=== PATIENT | female | born 1955 | race Caucasian/White ===

== ENCOUNTER 2019-09-27 07:00 | Outpatient (CLI) | payer OTHER, SELFPAY ==
--- NOTE | 2019-10-14 11:38 | SLEEP_ITS ---
CPAP titration DATE OF STUDY: 09/27/2019 ORDERING PHYSICIAN: Brook Alicea MD. REASON FOR THE STUDY: Prior sleep study, HST, on 05/09/2019 showing obstructive sleep apnea syndrome, requiring CPAP titration. HISTORY: This patient is a 64-year-old female, 64 inches tall, weighing 161 pounds with a body mass index of 27.6. On a home sleep test on 05/09/2019, she had mild EL with an AHI of 5. She has medical comorbidities and presents now for a CPAP titration. 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 MEDICATIONS: 1. Coumadin. 2. Lasix. 3. Potassium. 4. Levothyroxine. 5. Ambien 5 mg every night. 6. Aspirin 81 mg a day. 7. Multivitamin 1 daily. 8. ProAir RespiClick p.r.n. shortness of breath. 9. Metoprolol. 10. Sotalol. 11. Vitamin B12. 12. Glucosamine. 13. Spiriva. 14. Allopurinol. 15. Boniva. 16. Alvesco. HABITS: Never smoked tobacco. Caffeine 12 to 24 ounces a day. No alcohol. DESCRIPTION OF THE STUDY: On the [place] Sleepiness Scale, her score was 15. This was conducted as an attended full-night CPAP titration using the [employer] multiple channel system, including EOG, EEG, submental EMG, EKG, nasal and oral airflow using the thermistors and nasal pressure sensors chest and abdominal belts, body position data and pulse oximetry. This study was scored using the CMS guidelines. Duration of the study was 503.8 minutes. Sleep time was 256.5 minutes. Sleep efficiency was 50.9%. The sleep latency was 0.9 minutes, consistent with extreme hypersomnolence. There is no mention if she used a sleep inducing medication; however, she does have Ambien listed as a sleep medication. She wore a Sanchez LT nasal pillow, but she does not plan to use this when at home. It was the only nasal pillow mask in stock with the extra-small nasal pillows that fit her nose. She is not interested in a nasal mask that goes around her nose. The REM latency was 49.5 minutes. She had 71 awakenings and spent 49% of the study awake after the sleep onset, 246.4 minutes. Sleep architecture showed 7.7% of stage I sleep, 38.6% of stage II sleep, no stage III sleep, and 4.8% of stage REM. She spent 51 minutes supine. Sleep was extremely fragmented with 3 REM cycles, the first one was short with a short sleep latency, which is consistent with extreme hypersomnolence. Sleep was fragmented with frequent shifts between wake stage I and stage II throughout the study. The apnea-hypopnea index was 2.6. The obstructive index was 2.1, central index 0.5. She had 3 obstructive hypopneas in the supine REM for an index of 7.5. She had 1 obstructive apnea, 2 central apneas, and 5 obstructive hypopneas in the supine non-REM for an index of 2.1. The supine index was 2.6. Lowest desaturation was 90%. She spent no time below 88%. She had 9 desaturations of 4% or greater for an index of 1.1. The mean saturation was 94.6%. Arousals: 137 arousals for an index of 16.3. She had 1 hypopnea for an index of 0.11, 135 spontaneous for an index of 16.1, and 1 limb movement for an index of 0.1. Limb movements: No limb movements. EKG: Paced rhythm. Mean heart rate 73. During this titration, the patient used the extra-small Sanchez LT nasal pillow with a chinstrap. She was initiated at a pressure of 5 cm with poor sleep efficiency. She had a sleep efficiency of 88% on a pressure of 8 with 1 of EPR, but did not have any REM at that setting. She had a very little REM throughout the study. It was difficult to pick an optimal pressure, as she had such poor sleep efficiency throughout the majority of the test. She had very f
== END 2019-09-27 07:01 | disposition home or self-care (01) ==
LOC: ANHCSM 07:01
PROVIDERS: PCP Family Medicine Adolescent Medicine; Visit Provider Internal Medicine Critical Care Medicine
DX: G47.33 Obstructive sleep apnea (adult) (pediatric) (principal)
CPT/HCPCS: 95811

== ENCOUNTER 2019-12-19 09:22 | Outpatient (CLI) | payer OTHER, SELFPAY ==
--- NOTE | 2019-12-19 11:15 | NEURO_ITS ---
Patient Number: [id number] Impression: # Complains of weakness of legs and lower back pain. # Normal nerve conduction study including motor, sensory and F-waves. # Normal needle/EMG exam. # Clinical correlation recommended; Higher involvement cannot be ruled out. Nerve Conduction Studies Anti Sensory Summary Table Stim Site NR Peak (ms) P-T Amp (?V) Site1 Site2 Delta-P (ms) Dist (cm) Osorio (m/s) Left Sup Fibular Anti Sensory (Ant Lat Mall) 14 cm 3.2 9.4 14 cm Ant Lat Mall 3.2 16.0 50 Right Sup Fibular Anti Sensory (Ant Lat Mall) 14 cm 3.4 28.5 14 cm Ant Lat Mall 3.4 16.0 47 Left Sural Anti Sensory (Lat Mall) Calf 3.8 20.4 Calf Lat Mall 3.8 16.0 42 Right Sural Anti Sensory (Lat Mall) Calf 3.8 13.9 Calf Lat Mall 3.8 16.0 42 Motor Summary Table Stim Site NR Onset (ms) O-P Amp (mV) Site1 Site2 Delta-0 (ms) Dist (cm) Osorio (m/s) Left Peroneal Motor (Vastus Med) Ankle 3.7 2.6 Popit Ankle 7.1 36.0 51 Popit 10.8 2.1 Right Peroneal Motor (Vastus Med) Ankle 4.0 1.0 Popit Ankle 7.1 37.0 52 Popit 11.1 0.9 Left Tibial Motor (Abd Rodriguez Brev) Ankle 4.3 2.3 Knee Ankle 8.0 40.0 50 Knee 12.3 1.6 Right Tibial Motor (Abd Rodriguez Brev) Ankle 4.1 3.7 Knee Ankle 9.1 40.0 44 Knee 13.2 1.2 F Wave Studies NR F-Lat (ms) L-R F-Lat (ms) Left Peroneal (Mrkrs) (EDB) 47.81 0.97 Right Peroneal (Mrkrs) (EDB) 48.79 0.97 Left Tibial (Mrkrs) (Abd Hallucis) 49.89 0.78 Right Tibial (Mrkrs) (Abd Hallucis) 49.11 0.78 EMG Side Muscle Nerve Root Ins Act Fibs Amp Dur Recrt Comment Right AntTibialis Dp Br Fibular L4-5 Nml Nml Nml Nml Nml Right Gastroc Tibial S1-2 Nml Nml Nml Nml Nml Right Fibularis Long Sup Br Fibular L5-S1 Nml Nml Nml Nml Nml Right Flex Dig Long Tibial L5-S2 Nml Nml Nml Nml Nml Right Ext Dig Brev Dp Br Fibular L5, S1 Nml Nml Nml Nml Nml Left AntTibialis Dp Br Fibular L4-5 Nml Nml Nml Nml Nml Left Gastroc Tibial S1-2 Nml Nml Nml Nml Nml Left Fibularis Long Sup Br Fibular L5-S1 Nml Nml Nml Nml Nml Left Flex Dig Long Tibial L5-S2 Nml Nml Nml Nml Nml Left Ext Dig Brev Dp Br Fibular L5, S1 Nml Nml Nml Nml Nml Right QuadratusFem QuadFemoris L4-5, S1 Nml Nml Nml Nml Nml Left QuadratusFem QuadFemoris L4-5, S1 Nml Nml Nml Nml Nml MTDD
== END 2019-12-19 09:23 | disposition home or self-care (01) ==
PROVIDERS: PCP Family Medicine Adolescent Medicine; Visit Provider Family Medicine Adolescent Medicine
DX: M79.89 Other specified soft tissue disorders (principal); M54.5 Low back pain
CPT/HCPCS: 95886; 95910

== ENCOUNTER 2020-02-14 08:42 | Outpatient (CLI) | payer OTHER, SELFPAY ==
--- NOTE | ~2020-02-14 | CT_ITS ---
EXAMINATION: CT cervical spine wo [facility] EXAM DATE: 02/14/2020 09:11 INDICATION: Cervical cancer. Left arm weakness. TECHNIQUE: Spiral CT of the cervical spine was performed without contrast. Axial images were reviewe d. Coronal and sagittal reformatted images were also reviewed. The dose-length product (DLP) for thi s examination was 213.26 mGy-cm. The exposure was tailored according to patient size (auto mA exposu re control), and iterative reconstruction (ASIR) was used as additional dose reduction technique. [facility] is no prior study for comparison. Correlation was made with cervical spine MRI 2011. FINDINGS: Mild mid cervical disc disease. The odontoid process is intact. The lateral masses of C1 l ine up with C2. There are no acute fractures identified. Prevertebral soft tissue and pre-dens space are within normal limits. There are no osteoblastic or osteolytic lesions identified. Paraspinal soft tissue is unremarkable. Level by level evaluation: C2-C3: Disc does not extend beyond the endplate margin. Uncovertebral joint arthropathy: None. Facet joint arthropathy: Mild. Neural foraminal stenosis: No stenosis. Central canal stenosis: No stenosis. C3-C4: Disc does not extend beyond the endplate margin. Uncovertebral joint arthropathy: None. Facet joint arthropathy: Mild. Neural foraminal stenosis: No stenosis. Central canal stenosis: No stenosis. C4-C5: Disc does not extend beyond the endplate margin. Uncovertebral joint arthropathy: Mild left. Facet joint arthropathy: Moderate right, mild left. Neural foraminal stenosis: No stenosis. Central canal stenosis: No stenosis. C5-C6: There is a mild diffuse disc bulge. Uncovertebral joint arthropathy: Mild left. Facet joint arthropathy: Mild to moderate bilateral. Neural foraminal stenosis: Mild left. Central canal stenosis: No stenosis. C6-C7: There is a mild diffuse disc bulge. Uncovertebral joint arthropathy: Mild bilateral. Facet joint arthropathy: Mild bilateral. Neural foraminal stenosis: No stenosis. Central canal stenosis: No stenosis. C7-T1: Disc does not extend beyond the endplate margin. Uncovertebral joint arthropathy: None. Facet joint arthropathy: None. Neural foraminal stenosis: No stenosis. Central canal stenosis: No stenosis. IMPRESSION: 1. Overall mild cervical spondylosis. Reviewed, dictated and finalized at location A.
== END 2020-02-14 08:43 | disposition home or self-care (01) ==
PROVIDERS: PCP Family Medicine Adolescent Medicine; Visit Provider Psychiatry & Neurology Neurology
DX: R53.1 Weakness (principal); M47.812 Spondylosis without myelopathy or radiculopathy, cervical region
CPT/HCPCS: 72125

== ENCOUNTER → 2020-07-30 11:14 | Outpatient (CLI) | payer OTHER, SELFPAY ==
--- NOTE | ~2020-07-30 | XR_ITS ---
XR foot LT min 3V 07/30/2020 11:32 INDICATION: Left foot pain after injury PROCEDURE: 4 views left foot COMPARISON: 05/04/2015 FINDINGS: There is a healing nondisplaced stress fracture of the fourth metatarsal.. Lisfranc joint i ntact. The soft tissues appear within normal limits. No foreign bodies are identified. IMPRESSION: 1: Healing nondisplaced stress fracture left fourth metatarsal. Reviewed, dictated and finalized at location A. AL DIRECTOR
== END ==
PROVIDERS: PCP Family Medicine Adolescent Medicine; Visit Provider Family Medicine Adolescent Medicine
DX: S99.922A Unspecified injury of left foot, initial encounter (principal); S99.922D Unspecified injury of left foot, subsequent encounter
CPT/HCPCS: 73630

== ENCOUNTER 2020-08-01 11:05 | Emergency (ER) | payer OTHER, SELFPAY ==
--- NOTE | ~2020-08-01 | XR_ITS ---
XR hip RT min 3V w AP pelvis 08/01/2020 11:30 INDICATION: Right hip pain after fall PROCEDURE: AP pelvis and 3 views right hip COMPARISON: No prior studies for comparison. FINDINGS: There is periosteal reaction of the lateral margin of the proximal femur with transverse avtar cency, compatible with stress fracture. Sacral foramen are symmetric. There is mild osteoarthritis of the hips. The soft tissues appear within normal limits. No foreign bodies are identified. IMPRESSION: 1: Stress fracture proximal diaphysis of the right femur seen on one view only. Reviewed, dictated and finalized at location A. 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
--- NOTE | ~2020-08-01 | XR_ITS ---
XR knee RT 3V 08/01/2020 11:30 Indication: Right knee pain Procedure: 3 views right knee Comparison: 01/20/2012 Findings: Small joint effusion. There is mild soft tissue prominence anterior to the proximal tibia, nonspecific. There is a possible age indeterminate osteochondral defect along the posterior margin th e patella, best seen on lateral view. Impression: 1: Possible age indeterminate osteochondral defect posterior margin of the patella, demonstrated on l ateral view. 2: Small knee effusion. Reviewed, dictated and finalized at location A. AP BAG SEWER Impression: 1: Possible age indeterminate osteochondral defect posterior margin of the kaye lla, demonstrated on lateral view. 2: Small knee effusion.
--- NOTE | ~2020-08-01 | CT_ITS ---
EXAMINATION: CT pelvis wo con DATE: 08/01/2020 12:34 INDICATION: Right mid femur pain TECHNIQUE: Computed tomography (CT) of the pelvis was performed without intravenous contrast. The dos e-length product was 526.92 mGy-cm. Automated exposure control and iterative reconstruction technique were employed. COMPARISON: 08/01/2020 FINDINGS: The transverse lucency seen in the lateral margin of the proximal right femoral diaphysis i s not well visualized on CT examination. There is mild degenerative changes of the hips. There is a r ight sacral insufficiency fracture which is nondisplaced. No other fractures identified. Visualized i ntra-abdominal contents are normal. IMPRESSION: 1. Nondisplaced right sacral insufficiency fracture. 2: Transverse nondisplaced fracture proximal aspect of the right femur seen on x-ray is not definitel y visualized on CT. Consider correlation with MRI. Reviewed, dictated and finalized at location A. ANALYST IMPRESSION: 1. Nondisplaced right sacral insufficiency fracture. 2: Transverse nondisplaced fracture proximal aspect of the right femur seen on x-ray is not definitely visualized on CT. Consider correlation with MRI.
--- NOTE | ~2020-08-01 | CT_ITS ---
EXAMINATION: CT brain wo con DATE: 08/01/2020 15:06 INDICATION: Head injury. Headache. TECHNIQUE: Computed tomography (CT) of the head was performed without intravenous contrast. The mA wa s adjusted according to patient size. Iterative reconstruction technique was employed. The dose-lengt h product was 605.33 mGy-cm. COMPARISON: Head CT 12/26/2014 FINDINGS: There is no intracranial hemorrhage, acute infarction, or abnormal intracranial mass lesion . There is a prominent perivascular space inferior to the left basal ganglia. There are scattered are as of low attenuation in the cerebral white matter, which is within normal limits for the patient's a ge. The ventricles are normal in size. The orbits are normal. The paranasal sinuses are clear. The m astoid air cells are normal. IMPRESSION: 1. Normal aging brain. Reviewed, dictated and finalized at location A. CUTTER IMPRESSION: 1. Normal aging brain.
[2020-08-01] MEDS: MORPHINE SULFATE (*CRX) 4 MG/ML INJ IV PUSH ×2 (11:36→13:41)
[2020-08-01 11:45] VITALS: BP 140/67; PULSE 81; RESP 15; TEMP 36.7; O2SAT 95
[2020-08-01 14:11] LABS: Basophils Percent Auto 0.2 % (0.2-1.2); Eosinophils Absolute Auto 0.1 K/mm3 (0-0.3); Eosinophils Percent Auto 0.5 % (0-4.4); Hematocrit 43.3 % (37.0-47.0); Hemoglobin 14.3 g/dL (12.0-15.0); Immature Granulocyte Absolute 0.12 K/mm3 (0.00-0.031); Immature Granulocyte Percent A 0.9 % (0-0.5); Lymphocytes Absolute Auto 1.01 K/mm3 (0.9-3.2); Lymphocytes Percent Auto 7.8 % (18.3-44.2); Mean Corpuscular Hemoglobin 30.2 pg (26-34); Mean Corpuscular Volume 91.5 fl (80-100); Mean Platelet Volume 10.8 fl (7.4-10.4); Monocytes Absolute Auto 0.7 K/mm3 (0.1-0.6); Monocytes Percent Auto 5.2 % (2.6-8.5); Neutrophils Absolute Auto 11.1 K/mm3 (1.3-6.7); Neutrophils Percent Auto 85.4 % (45.5-73.1); Platelet Count Result 170 k/mm3 (150-375); Red Blood Count 4.73 M/mm3 (4.2-5.4); Red Cell Distribution Width 14.2 % (11.5-14.5)
[2020-08-01 14:27] LABS: Alanine Aminotransferase 42 U/L (4-35); Albumin Level 4.1 g/dL (3.5-5.1); Alkaline Phosphatase 98 U/L (38-126); Anion Gap 6 mmol/L (8-16); Aspartate Amino Transferase 50 U/L (14-36); Bilirubin,Total 0.6 mg/dL (0.2-1.3); Blood Urea Nitrogen 20 mg/dL (7-17); Calcium 9.4 mg/dL (8.4-10.2); Carbon Dioxide 32 mmol/L (22-30); Chloride 104 mmol/L (98-107); Estimated CRCL calculation 74 ml/min; Estimated Glomerular Filt Rate > 60; Glucose 97 mg/dL (65-105); Potassium 3.7 mmol/L (3.4-5.0); Sodium 142 mmol/L (137-145)
[2020-08-01 14:36] VITALS: BP 152/81; PULSE 91; RESP 18; O2SAT 99
--- NOTE | 2020-08-01 14:51 | ED.GENADULT ---
HPI - General Adult General Chief complaint: Extremity Injury, Lower Stated complaint: R HIP PAIN History of Present Illness HPI narrative: Patient 64-year-old female presents the emergency department with chief complaint of fall from countertop. The patient reports that she was crawling up onto a slick countertop in her down to change a light bulb. The patient fell off of the counter and landed on the floor. Patient reports she has pain in her pelvis and her right hip was years ago. The patient reports that she takes Coumadin and initially did not think that she struck her head, but later on developed a headache. Patient reports symptoms are worse with movement and improved with rest Related Data Home Medications Medication Instructions Recorded Confirmed albuterol sulfate 90 mcg/actuation 1 inhalation INHALATION Q4-6H PRN 06/24/19 12/25/19 breath activated powder inhaler aspirin 81 mg tablet,delayed 81 mg PO DAILY 06/24/19 12/25/19 release ciclesonide 160 mcg/actuation 1 puff INHALATION DAILY 06/24/19 12/25/19 aerosol inhaler cyanocobalamin (vitamin B-12) 1,000 mcg PO DAILY 06/24/19 12/25/19 1,000 mcg capsule furosemide 40 mg tablet 40 mg PO QAM 06/24/19 12/25/19 glucosamine-chondroitin 250 mg-200 2 tablet PO TID 06/24/19 12/25/19 mg tablet levothyroxine 25 mcg tablet 25 mcg PO DAILY 06/24/19 12/25/19 metoprolol tartrate 50 mg tablet 50 mg PO DAILY 06/24/19 12/25/19 multivitamin 1 tablet PO DAILY 06/24/19 12/25/19 potassium chloride 10 mEq 10 meq PO DAILY 06/24/19 12/25/19 capsule,extended release sotalol 120 mg tablet 120 mg PO Q12H 06/24/19 12/25/19 warfarin 1 mg tablet 1 mg PO QMWF 06/24/19 12/25/19 gabapentin 100 mg capsule 100 mg PO DAILY 06/26/20 06/26/20 Allergies Allergy/AdvReac Type Severity Reaction Status Date / Time bee pollen Allergy Unknown Unknown Verified 06/26/20 10:26 cefprozil Allergy Unknown Unknown Verified 06/26/20 10:26 cefuroxime Allergy Unknown Unknown Verified 06/26/20 10:26 celecoxib Allergy Unknown Unknown Verified 06/26/20 10:26 Cephalosporins Allergy Unknown HOT/FLUSHED Verified 06/26/20 10:26 pregabalin Allergy Unknown Unknown Verified 06/26/20 10:26 Sulfa (Sulfonamide Allergy Unknown Unknown Verified 06/26/20 10:26 Antibiotics) trimethoprim Allergy Unknown UNKNOWN Verified 06/26/20 10:26 vancomycin Allergy Unknown Unknown Verified 06/26/20 10:26 Review of Systems Review of Systems: Narrative: A 10 system review of systems was completed on the patient and is negative except for what is stated in the HPI. Nursing and ancillary documentation was reviewed. [facility] Past Medical History Medical History (Updated 08/01/20 @ 14:55 by Navarro Olivarez MD) ANIKET positive (~07/2019) Bilateral hand pain Congestive heart failure Inflammatory arthritis Mitral valve disease Stress fracture of foot SVT (supraventricular tachycardia) Vitamin D deficiency Family History Family History Sibling Family history of mental disorder Family history of malignant neoplasm of breast in first degree relative, Onset Age: 35 Patient's sister is Family history of thyroid disease Family history of malignant neoplasm of bone Hypertension Family history of hypothyroidism Mother Family history of dementia Family history of Alzheimer's disease Family history of diabetes mellitus in first degree relative Diabetes mellitus Family history of arthritis Father Family history of heart disease in male family member before age 55 Family history of cardiovascular disease, Onset Age: 55 Acute myocardial infarction, Onset Age: 55 Social History Social History Smoking status: Never smoker Alcohol intake: never Exam Narrative: Exam Narrative: GENERAL: Well-appearing, well-nourished, and in no acute distress. HEAD: No
== END 2020-08-01 15:39 | disposition home or self-care (01) ==
PROVIDERS: Emergency Provider Emergency Medicine; PCP Family Medicine Adolescent Medicine
DX: M84.48XA Pathological fracture, other site, initial encounter for fracture (principal); Z79.82 Long term (current) use of aspirin; Z79.01 Long term (current) use of anticoagulants; I50.9 Heart failure, unspecified; E55.9 Vitamin D deficiency, unspecified; R93.6 Abnormal findings on diagnostic imaging of limbs; W17.89XA Other fall from one level to another, initial encounter
CPT/HCPCS: 36415; 70450; 72192; 73502; 73562; 80053; 85025; 96374; 96376; 99284; J2270

== ENCOUNTER 2020-10-21 13:56 | Emergency (ER) | payer OTHER, SELFPAY ==
--- NOTE | ~2020-10-21 | XR_ITS ---
EXAMINATION: XR chest 2V EXAM DATE: 10/21/2020 14:53 INDICATION: Shortness of breath. History COPD. TECHNIQUE: Frontal and lateral projections of the chest obtained and reviewed. Comparison is made to prior examination from 05/20/2019. FINDINGS: Sternotomy wires are present without findings to suggest sternal dehiscence. There is singl e lead pacemaker/AICD device seen with tip projecting over the expected location of right ventricle. Valve replacement. There is cardiomegaly. No confluent consolidation, pneumothorax or pleural effusio n suspected. Mild to moderate lower thoracic dextroscoliosis. IMPRESSION: 1. Cardiomegaly. Reviewed, dictated and finalized at location A. IMPRESSION: 1. Cardiomegaly.
[2020-10-21 14:03] VITALS: BP 155/83; PULSE 88; RESP 17; TEMP 36.6; O2SAT 100
--- NOTE | 2020-10-21 14:03 | ECG_ITS ---
Measurements Intervals [place] Rate: 84 P: 118 CO: 222 QRS: -13 QRSD: 131 T: 1 QT: 395 QTc: 468 Interpretive Statements SINUS RHYTHM WITH FIRST DEGREE AV BLOCK INTRAVENTRICULAR CONDUCTION DELAY LEFT VENTRICULAR HYPERTROPHY AND ST-T CHANGE ST-T WAVE ABNORMALITY IN HIGH LATERAL LEADS- CONSIDER ISCHEMIA ABNORMAL ECG Electronically Signed On 10-21-2020 14:13:57 CDT by Jarrett Shipman D.O.
[2020-10-21 14:44] LABS: Basophils Percent Auto 0.4 % (0.2-1.2); Eosinophils Absolute Auto 0.1 K/mm3 (0-0.3); Eosinophils Percent Auto 1.4 % (0-4.4); Hematocrit 43.5 % (37.0-47.0); Hemoglobin 14.3 g/dL (12.0-15.0); Immature Granulocyte Absolute 0.02 K/mm3 (0.00-0.031); Immature Granulocyte Percent A 0.3 % (0-0.5); Lymphocytes Absolute Auto 1.22 K/mm3 (0.9-3.2); Lymphocytes Percent Auto 16.5 % (18.3-44.2); Mean Corpuscular HGB Conc 32.9 g/dl (32-36); Mean Corpuscular Volume 91.4 fl (80-100); Mean Platelet Volume 10.9 fl (7.4-10.4); Monocytes Absolute Auto 0.7 K/mm3 (0.1-0.6); Monocytes Percent Auto 9.9 % (2.6-8.5); Neutrophils Absolute Auto 5.3 K/mm3 (1.3-6.7); Neutrophils Percent Auto 71.5 % (45.5-73.1); Platelet Count Result 188 k/mm3 (150-375); Red Blood Count 4.76 M/mm3 (4.2-5.4); Red Cell Distribution Width 14.6 % (11.5-14.5); White Blood Count 7.4 K/mm3 (4.5-10.0)
[2020-10-21 14:54] LABS: INR 2.4
[2020-10-21 14:55] LABS: Anion Gap 6 mmol/L (8-16); Blood Urea Nitrogen 23 mg/dL (7-17); Calcium 9.2 mg/dL (8.4-10.2); Carbon Dioxide 29 mmol/L (22-30); Chloride 106 mmol/L (98-107); Estimated CRCL calculation 73 ml/min; Estimated Glomerular Filt Rate > 60; Glucose 93 mg/dL (65-105); Sodium 141 mmol/L (137-145)
[2020-10-21 15:07] LABS: Troponin I < 0.012 ng/mL (0.000-0.034)
[2020-10-21] MEDS: MORPHINE SULFATE (*CRX) 4 MG/ML INJ IV PUSH (15:33)
--- NOTE | 2020-10-21 15:42 | ED.CHESTPAIN ---
HPI - Chest Pain General Chief Complaint: Chest Pain Stated Complaint: low oxygen, cp Time Seen by Provider: 10/21/20 14:31 History of Present Illness HPI narrative: Patient is a 65-year-old female who presents to the ER with chest tightness and shortness of breath. Ongoing for the last 24 hours. Has some pain under her left shoulder blade that is reproducible with palpation with range of motion. She reports she has been using her pulse oximeter at home that is been reading in the 40s and 50s while on room air. She does not require oxygen. She has had a mild runny nose related to allergies. No sore throat or productive cough. No exertional decline. Chest pain is a tightness around her entire chest. No change with exertion. Has history of mitral valve replacement for which she takes Coumadin. Her INR last week was 3.0. Related Data Home Medications Medication Instructions Recorded Confirmed albuterol sulfate 90 mcg/actuation 1 inhalation INHALATION Q4-6H PRN 06/24/19 10/07/20 breath activated powder inhaler aspirin 81 mg tablet,delayed 81 mg PO DAILY 06/24/19 10/07/20 release ciclesonide 160 mcg/actuation 1 puff INHALATION DAILY 06/24/19 10/07/20 aerosol inhaler cyanocobalamin (vitamin B-12) 1,000 mcg PO DAILY 06/24/19 10/07/20 1,000 mcg capsule furosemide 40 mg tablet 40 mg PO QAM 06/24/19 10/07/20 glucosamine-chondroitin 250 mg-200 2 tablet PO TID 06/24/19 10/07/20 mg tablet levothyroxine 25 mcg tablet 25 mcg PO DAILY 06/24/19 10/07/20 metoprolol tartrate 50 mg tablet 50 mg PO DAILY 06/24/19 10/07/20 multivitamin 1 tablet PO DAILY 06/24/19 10/07/20 potassium chloride 10 mEq 10 meq PO DAILY 06/24/19 10/07/20 capsule,extended release sotalol 120 mg tablet 120 mg PO Q12H 06/24/19 10/07/20 warfarin 1 mg tablet 1 mg PO QMWF 06/24/19 10/07/20 gabapentin 100 mg capsule 100 mg PO DAILY 06/26/20 10/07/20 Allergies Allergy/AdvReac Type Severity Reaction Status Date / Time bee pollen Allergy Unknown Unknown Verified 10/21/20 15:46 cefprozil Allergy Unknown [place]ushing Verified 10/21/20 15:46 cefuroxime Allergy Unknown Unknown Verified 06/26/20 10:26 celecoxib Allergy Unknown Unknown Verified 06/26/20 10:26 Cephalosporins Allergy Unknown HOT/FLUSHED Verified 10/21/20 15:46 pregabalin Allergy Unknown Unknown Verified 06/26/20 10:26 Sulfa (Sulfonamide Allergy Unknown [place]ushing Verified 10/21/20 15:46 Antibiotics) trimethoprim Allergy Unknown UNKNOWN Verified 06/26/20 10:26 vancomycin Allergy Unknown Unknown Verified 06/26/20 10:26 Review of Systems Review of Systems: All systems reviewed & are unremarkable except as noted in HPI and below Constitutional: Constitutional: Denies chills, Denies fever(s) and Denies weakness ENT: Denies nasal congestion and Denies sore throat Cardiovascular: Cardiovascular: Reports chest pain, Denies rapid heart rate and Denies radiating jaw, neck or arm pain Respiratory: Respiratory: Denies chest congestion, Denies cough, Reports dyspnea and Denies wheezing Gastrointestinal: Gastrointestinal: Denies abdominal pain, Denies nausea and Denies vomiting PMFSH Past Medical History Medical History ANIKET positive (~07/2019) Bilateral hand pain Congestive heart failure Hernia Inflammatory arthritis Mitral valve disease Mitral valve prolapse Stress fracture of foot SVT (supraventricular tachycardia) Vitamin D deficiency Surgical History Surgical History H/O: hysterectomy History of heart valve replacement Hx of bilateral breast reduction surgery Pacemaker Family History Family History Sibling Family history of mental disorder Family history of malignant neoplasm of breast in first degree relative, Onset Age: 35 Patient's sister is Family history of thyroid disease Family history of malignant neop
[2020-10-21 15:55] VITALS: BP 146/85; PULSE 77; RESP 18; O2SAT 96
[2020-10-21 16:05] VITALS: O2SAT 97
[2020-10-21 16:34] VITALS: BP 155/91; PULSE 81; RESP 17; O2SAT 97
== END 2020-10-21 16:38 | disposition home or self-care (01) ==
PROVIDERS: Emergency Provider Emergency Medicine; PCP Family Medicine Adolescent Medicine
DX: R07.9 Chest pain, unspecified (principal); I50.9 Heart failure, unspecified
CPT/HCPCS: 36415; 71046; 80048; 84484; 85025; 85610; 85730; 93005; 96374; 99284; J2270

== ENCOUNTER → 2020-10-30 14:00 | Outpatient (CLI) | payer OTHER, SELFPAY ==
--- NOTE | ~2020-10-30 | XR_ITS ---
EXAMINATION: XR foot LT min 3V DATE: 10/30/2020 14:39 INDICATION: Left foot pain TECHNIQUE: Dorsoplantar, lateral, and 2 oblique views of the left foot were obtained. COMPARISON: 07/30/2019 FINDINGS: There is an old healed fracture of the fourth metatarsal. No acute fracture is identified. There is mild osteoarthritis at the first metatarsal phalangeal joint as well as in several interphal angeal joints and in the midfoot. IMPRESSION: 1. No acute osseous abnormality. Reviewed, dictated and finalized at location A.
== END ==
PROVIDERS: Visit Provider Family Medicine Adolescent Medicine
DX: M79.672 Pain in left foot (principal)
CPT/HCPCS: 73630

== ENCOUNTER 2021-08-08 10:43 | Emergency (ER) | payer OTHER, SELFPAY ==
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
--- NOTE | ~2021-08-08 | XR_ITS ---
XR ankle LT min 3V 08/08/2021 11:44 Indication: Left ankle pain Procedure: 4 views left ankle Comparison: 10/30/2020 Findings: Fracture, subluxation or dislocation. Ankle mortise intact. Talar dome is normal. No signif icant soft tissue abnormality. No foreign bodies. Impression: 1: No acute fracture. Reviewed, dictated and finalized at location A. FILTER OPERATOR Impression: 1: No acute fracture.
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
[2021-08-08 10:43] VITALS: BP 158/90; PULSE 76; RESP 18; TEMP 36.8; O2SAT 98
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
--- NOTE | 2021-08-08 11:20 | ECG_ITS ---
Measurements Intervals [place] Rate: 76 P: 85 MN: 202 QRS: -13 QRSD: 121 T: 0 QT: 406 QTc: 457 Interpretive Statements SINUS RHYTHM VENTRICULAR PREMATURE COMPLEX BORDERLINE AV CONDUCTION DELAY LEFT BUNDLE BRANCH BLOCK ABNORMAL ECG Electronically Signed On 08-08-2021 13:47:52 BRIM RAISER by Jarrett Shipman D.O.
[2021-08-08 11:48] LABS: Alanine Aminotransferase 58 U/L (4-35); Albumin Level 4.3 g/dL (3.5-5.1); Alkaline Phosphatase 95 U/L (38-126); Anion Gap 9 mmol/L (8-16); Aspartate Amino Transferase 76 U/L (14-36); Bilirubin,Total 0.6 mg/dL (0.2-1.3); Blood Urea Nitrogen 26 mg/dL (7-17); Calcium 9.8 mg/dL (8.4-10.2); Carbon Dioxide 28 mmol/L (22-30); Chloride 102 mmol/L (98-107); Estimated CRCL calculation 56 ml/min; Estimated Glomerular Filt Rate > 60; Glucose 117 mg/dL (65-110); Potassium 3.9 mmol/L (3.4-5.0); Sodium 139 mmol/L (137-145)
[2021-08-08 11:58] LABS: INR 2.8
[2021-08-08 11:59] LABS: Partial Thromboplastin Time 44.3 SECONDS (22.3-36.8); Troponin I < 0.012 ng/mL (0.000-0.034)
[2021-08-08 12:01] LABS: Basophils Percent Auto 0.4 % (0.2-1.2); Eosinophils Absolute Auto 0.1 K/mm3 (0-0.3); Eosinophils Percent Auto 0.9 % (0-4.4); Hematocrit 45.4 % (37.0-47.0); Hemoglobin 15.1 g/dL (12.0-15.0); Immature Granulocyte Percent A 1.8 % (0-0.5); Lymphocytes Absolute Auto 0.76 K/mm3 (0.9-3.2); Lymphocytes Percent Auto 6.7 % (18.3-44.2); Mean Corpuscular HGB Conc 33.3 g/dl (32-36); Mean Corpuscular Hemoglobin 31.9 pg (26-34); Mean Corpuscular Volume 95.8 fl (80-100); Mean Platelet Volume 11.1 fl (7.4-10.4); Monocytes Absolute Auto 0.7 K/mm3 (0.1-0.6); Monocytes Percent Auto 6.4 % (2.6-8.5); Neutrophils Absolute Auto 9.5 K/mm3 (1.3-6.7); Neutrophils Percent Auto 83.8 % (45.5-73.1); Platelet Count Result 177 k/mm3 (150-375); Red Blood Count 4.74 M/mm3 (4.2-5.4); Red Cell Distribution Width 13.6 % (11.5-14.5); White Blood Count 11.3 K/mm3 (4.5-10.0)
[2021-08-08] MEDS: ONDANSETRON INJ 4 MG/2 ML VIAL IV PUSH (12:01)
[2021-08-08] MEDS: MORPHINE SULFATE (*CRX) 4 MG/ML INJ IV PUSH ×2 (12:01→14:12)
[2021-08-08 13:00] VITALS: BP 144/82; PULSE 81; RESP 16; O2SAT 97
[2021-08-08 14:54] VITALS: BP 109/86; PULSE 89; RESP 16; O2SAT 97
[2021-08-08 15:12] LABS: Troponin I < 0.012 ng/mL (0.000-0.034)
== END 2021-08-08 15:00 | disposition short-term general hospital (02) ==
PROVIDERS: Physician Assistant; Emergency Provider Emergency Medicine; PCP Family Medicine Adolescent Medicine
DX: S20.212A Contusion of left front wall of thorax, initial encounter (principal); J90 Pleural effusion, not elsewhere classified; I50.9 Heart failure, unspecified; I34.1 Nonrheumatic mitral (valve) prolapse; E55.9 Vitamin D deficiency, unspecified; Z95.2 Presence of prosthetic heart valve; Z79.01 Long term (current) use of anticoagulants; Z79.82 Long term (current) use of aspirin; Z95.0 Presence of cardiac pacemaker; V49.50XA Passenger injured in collision with unspecified motor vehicles in traffic accident, initial encounter; I49.3 Ventricular premature depolarization; R94.31 Abnormal electrocardiogram [ECG] [EKG]; I44.7 Left bundle-branch block, unspecified
CPT/HCPCS: 36415; 71260; 72125; 72129; 72132; 73610; 74177; 80053; 84484; 85025; 85610; 85730; 93005; 96365; 96366; 96375; 96376; 99285; J0131; J2270; J2405; Q9967

== ENCOUNTER 2021-09-16 12:13 | Outpatient (CLI) | payer OTHER, SELFPAY ==
--- NOTE | ~2021-09-16 | US_ITS ---
EXAMINATION:US venous doppler LE RT INDICATION:Leg edema TECHNIQUE: Multiple grayscale, color flow and Doppler images of the right lower extremity deep venous systems were obtained and reviewed. COMPARISON:No prior studies for comparison. FINDINGS: The common femoral, superficial femoral and popliteal veins demonstrate normal respiratory variation, augmentation and compressibility. Color flow is also seen within the posterior tibial, pe roneal, greater saphenous and profunda veins. IMPRESSION: 1: No lower extremity deep venous thrombosis. Reviewed, dictated and finalized at location B. ET BASKET MAKER
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
== END 2021-09-16 12:14 | disposition home or self-care (01) ==
PROVIDERS: PCP Family Medicine Adolescent Medicine; Visit Provider Physician Assistant
DX: M85.871 Other specified disorders of bone density and structure, right ankle and foot (principal); R60.0 Localized edema
CPT/HCPCS: 73630; 93971

== ENCOUNTER 2021-09-23 10:09 | Outpatient (CLI) | payer OTHER, SELFPAY ==
--- NOTE | ~2021-09-23 | XR_ITS ---
EXAMINATION: XR chest 2V EXAM DATE: 09/23/2021 10:24 INDICATION: Dyspnea on exertion. TECHNIQUE: Frontal and lateral projections of the chest obtained and reviewed. Comparison is made to prior examination from 10/21/2020. FINDINGS: There is pacemaker/AICD device. Cardiac valve replacement. Cardiomegaly. Sternotomy wires. There is no pneumothorax suspected. There are no pleural effusions. Mild to moderate lower thoracic d extroscoliosis. There is no significant interval change. IMPRESSION: Cardiomegaly. Reviewed, dictated and finalized at location B. ET WINDER IMPRESSION: Cardiomegaly.
== END 2021-09-23 10:10 | disposition home or self-care (01) ==
LOC: ANHIMG 10:12
PROVIDERS: PCP Family Medicine Adolescent Medicine; Visit Provider Nurse Practitioner Adult Health
DX: R06.00 Dyspnea, unspecified (principal); I51.7 Cardiomegaly
CPT/HCPCS: 71046

== ENCOUNTER 2021-09-28 08:51 | Outpatient (CLI) | payer OTHER, SELFPAY ==
--- NOTE | ~2021-09-28 | CT_ITS ---
EXAMINATION: CT brain wo con DATE: 09/28/2021 09:11 INDICATION: Dysphasia. TECHNIQUE: Computed tomography (CT) of the head was performed without intravenous contrast. The mA wa s adjusted according to patient size. Iterative reconstruction technique was employed. The dose-lengt h product was 605.33 mGy-cm. COMPARISON: Head CT 08/01/2020 FINDINGS: There are scattered areas of low attenuation in the cerebral white matter, which is within normal limits for the patient's age. There is no intracranial hemorrhage, acute infarction, or abnorm al intracranial mass lesion. The ventricles are normal in size. There are likely changes of ocular le ns replacement surgeries. There is mild mucosal thickening in the ethmoid sinuses. The mastoid air ce lls are normal. IMPRESSION: 1. Normal aging brain. Reviewed, dictated and finalized at location A. TRANSIT OPERATOR IMPRESSION: 1. Normal aging brain.
== END 2021-09-28 08:52 | disposition home or self-care (01) ==
LOC: ANHIMG 08:53
PROVIDERS: PCP Family Medicine Adolescent Medicine; Visit Provider Nurse Practitioner Adult Health
DX: R47.02 Dysphasia (principal)
CPT/HCPCS: 70450

== ENCOUNTER 2021-11-02 11:25 | Observation (INO) | payer OTHER, SELFPAY ==
[2021-11-02] VITALS (21 sets, daily range): BP systolic 105–144; BP diastolic 54–81; PULSE 73–84; RESP 13–21; TEMP 36.4–36.8; O2SAT 94–100
--- NOTE | ~2021-11-02 | CT_ITS ---
EXAMINATION: CT abdomen pelvis w con DATE: 11/02/2021 13:59 INDICATION: Abdominal pain. Blood in stool. TECHNIQUE: Computed tomography (CT) of the abdomen and pelvis was performed with 100 mL Omnipaque 350 intravenous contrast. Automated exposure control and iterative reconstruction technique were employe d. The dose-length product was 770.31 mGy-cm. COMPARISON: CT abdomen and pelvis 08/08/2021 FINDINGS: The visualized portions of the lung bases demonstrate septal thickening, consistent with mi ld pulmonary edema. There is mild atelectasis bilaterally. No pleural effusion. Cardiomegaly is noted . There are changes of mitral valve replacement. There is a pacer wire in right ventricle. There are changes of surgery in left breast. The liver demonstrates focal steatosis adjacent to the falciform l igament. The gallbladder, spleen, pancreas, and adrenal glands are normal. There is cortical thinning of the kidneys. There are cysts in the kidneys measuring up to 8 mm on the left. There are no dilate d loops of bowel. The appendix is normal. There is wall thickening of the gastric antrum with adjacen t fat stranding. There are no pathologically enlarged lymph nodes. There is no free intraperitoneal f luid. There are old healed bilateral rib fractures. There is an old healed fracture of left inferior pubic ramus. There is mild thoracolumbar spondylosis. IMPRESSION: 1. Wall thickening of gastric antrum with adjacent fat stranding, consistent with gastritis. Reviewed, dictated and finalized at location A. IMPRESSION: 1. Wall thickening of gastric antrum with adjacent fat stranding, consistent wi th gastritis.
--- NOTE | ~2021-11-02 | CT_ITS ---
EXAMINATION: CT brain wo con EXAM DATE: 11/02/2021 14:00 INDICATION: Temporary change in awareness. Transient ischemic attack. TECHNIQUE: Spiral CT of the head was performed without contrast. Axial, coronal and sagittal images were reviewed. The dose-length product (DLP) for this examination was 605.33 mGy-cm. The exposure w as tailored according to patient size, and iterative reconstruction (ASIR) was used as additional dos e reduction technique. Comparison is made to prior examination from 09/28/2021. FINDINGS: There is no acute intraparenchymal hemorrhage. No evidence of intraparenchymal brain mass lesion. No evidence of acute infarction. Please note that initial head CT has limited sensitivity f or small or acute infarctions. There is mild periventricular and subcortical hypodensity, nonspecific but probably related to small vessel ischemic disease. There is mild prominence of the sulci and v entricles related to cerebral atrophy. Left choroidal fissure cyst. There is intracranial carotid ar teriosclerosis. There are no extra-axial collections. There is no mass effect or midline shift. Juanpablo arthur has had ocular lens surgery. Soft tissue is unremarkable. The visualized sinuses and mastoid air cells are well aerated. IMPRESSION: 1. No acute intracranial findings. 2. Chronic age related findings. Reviewed, dictated and finalized at location B.
--- NOTE | ~2021-11-02 | XR_ITS ---
EXAMINATION: XR chest 2V EXAM DATE: 11/02/2021 12:49 INDICATION: SOB, weakness, rectal bleeding. History COPD. TECHNIQUE: Frontal and lateral projections of the chest obtained and reviewed. Comparison is made to prior examination from 09/23/2021. FINDINGS: Sternotomy wires are present without findings to suggest sternal dehiscence. There is sing le lead pacemaker/AICD device seen with tip projecting over the expected location of right ventricle. There is mild cardiomegaly. Mitral valve replacement. Mild hyperinflation. No confluent consolidatio n, pneumothorax or pleural effusion suspected. Mild to moderate thoracolumbar scoliosis. IMPRESSION: 1. Mild cardiomegaly. 2. Mild hyperinflation. Reviewed, dictated and finalized at location B.
--- NOTE | 2021-11-02 11:34 | ECG_ITS ---
Measurements Intervals [place] Rate: 72 P: -11 [place]: 196 QRS: -17 QRSD: 125 T: -29 QT: 422 QTc: 464 Interpretive Statements SINUS RHYTHM WITH SINUS ARRHYTHMIA LEFT BUNDLE BRANCH BLOCK Electronically Signed On 11-02-2021 12:10:48 CDT by Daniel West M.D.
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
[2021-11-02 12:44] LABS: Basophils Percent Auto 0.4 % (0.2-1.2); Eosinophils Absolute Auto 0.1 K/mm3 (0-0.3); Eosinophils Percent Auto 1.3 % (0-4.4); Hematocrit 44.8 % (37.0-47.0); Hemoglobin 14.4 g/dL (12.0-15.0); Immature Granulocyte Absolute 0.03 K/mm3 (0.00-0.031); Immature Granulocyte Percent A 0.4 % (0-0.5); Lymphocytes Absolute Auto 1.12 K/mm3 (0.9-3.2); Lymphocytes Percent Auto 14.1 % (18.3-44.2); Mean Corpuscular HGB Conc 32.1 g/dl (32-36); Mean Corpuscular Hemoglobin 30.1 pg (26-34); Mean Corpuscular Volume 93.5 fl (80-100); Mean Platelet Volume 10.3 fl (7.4-10.4); Monocytes Absolute Auto 0.7 K/mm3 (0.1-0.6); Monocytes Percent Auto 9.3 % (2.6-8.5); Neutrophils Absolute Auto 5.9 K/mm3 (1.3-6.7); Neutrophils Percent Auto 74.5 % (45.5-73.1); Platelet Count Result 182 k/mm3 (150-375); Red Blood Count 4.79 M/mm3 (4.2-5.4); Red Cell Distribution Width 14.1 % (11.5-14.5); White Blood Count 7.9 K/mm3 (4.5-10.0)
[2021-11-02 12:56] LABS: INR 2.6; Prothrombin Time 27.3 Seconds (11.1-14.7)
[2021-11-02 12:58] LABS: Alanine Aminotransferase 31 U/L (4-35); Albumin Level 4.5 g/dL (3.5-5.1); Alkaline Phosphatase 98 U/L (38-126); Anion Gap 9 mmol/L (8-16); Aspartate Amino Transferase 40 U/L (14-36); Bilirubin,Total 0.5 mg/dL (0.2-1.3); Blood Urea Nitrogen 18 mg/dL (7-17); Calcium 8.9 mg/dL (8.4-10.2); Carbon Dioxide 26 mmol/L (22-30); Chloride 104 mmol/L (98-107); Estimated CRCL calculation 75 ml/min; Estimated Glomerular Filt Rate > 60; Glucose 105 mg/dL (65-110); Sodium 139 mmol/L (137-145)
[2021-11-02 13:14] LABS: Appearance Urine Clear (Clear); Bilirubin Urine Negative (Negative); Blood Urine Negative (Negative); Color Urine Yellow (Yellow); Glucose Urine UA Negative (Negative); Ketones Urine Negative (Negative); Leukocyte Esterase Ur Negative LEU/UL (Negative); Nitrate Urine Negative (Negative); Protein Urine Negative (Negative); Specific Grav Ur 1.015 (1.001-1.035); Urobilinogen Urine 0.2 mg/dL (<2.0); pH Urine 5.5 (5.0-9.0)
[2021-11-02 13:16] LABS: Add Urine Microscopic? NO
[2021-11-02 13:17] LABS: Mucus Urine Rare /lpf; RBC Urine 0-2 /hpf (0-2); Squamous Epithelial Cell Urine Rare /hpf (Few); WBC Urine 0-3 /hpf
[2021-11-02 13:17] LABS: NT Pro B Type Natriuretic Pept 761 pg/mL (5-100); Troponin I < 0.012 ng/mL (0.000-0.034)
[2021-11-02] MEDS: ONDANSETRON INJ 4 MG/2 ML VIAL IV PUSH ×2 (13:41→21:50)
[2021-11-02] MEDS: PANTOPRAZOLE SODIUM IV 40 MG VIAL IV PUSH (13:41)
--- NOTE | 2021-11-02 17:33 | ADMGEN ---
This patient, Chelsea Moreno, was admitted to Medical Room 341-01. Patient/family oriented to hospital policies and general routines including ID bracelet, bed and alarms, visiting hours, pain management, procedures, bathroom and other care routines, personal items, smoking policy, room service/diet, and visiting hours. Information on how to activate the Rapid Response Team has been discussed. Patient/Family are encouraged to report perceived risks to care and to ask questions if they do not understand what they are told or what they should do.
[2021-11-02 18:26] LABS: Hemoglobin 14.8 g/dL (12.0-15.0)
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
[2021-11-02 22:16] LABS: Hematocrit 40.4 % (37.0-47.0); Hemoglobin 13.1 g/dL (12.0-15.0)
[2021-11-02] MEDS: ZOLPIDEM TARTRATE (*CRX) 5 MG TABLET PO (23:35)
[2021-11-03] VITALS: BP 105/48; PULSE 80; RESP 16; TEMP 36.6; O2SAT 96
[2021-11-03 04:00] VITALS: BP 104/54; PULSE 82; RESP 16; TEMP 36.7; O2SAT 98
[2021-11-03 05:47] LABS: Hematocrit 42.3 % (37.0-47.0); Hemoglobin 13.8 g/dL (12.0-15.0)
[2021-11-03] MEDS: LEVOTHYROXINE SODIUM 50 MCG TABLET PO (07:12)
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
[2021-11-03] MEDS: FLUTICASONE/UMECLIDIN/VILANTER 100-62.5-25 MCG ELLIPTA 1 PUFF INHALATION (08:08)
[2021-11-03 08:18] VITALS: O2SAT 94
[2021-11-03] MEDS: ACIDOPHILUS/BULGARICUS CHEWABLE TABLET 1 TABLET PO (08:41)
[2021-11-03] MEDS: PANTOPRAZOLE 40 MG TABLET PO (08:41)
[2021-11-03] MEDS: CHOLECALCIFEROL 1,000 UNITS TABLET 2000 UNITS PO (08:41)
[2021-11-03] MEDS: VITAMIN B COMPLEX CAPSULE 1 CAP PO (08:41)
[2021-11-03] MEDS: OPTI-GEN TAB 1 TABLET PO (08:41)
[2021-11-03 08:42] VITALS: PULSE 82
[2021-11-03] MEDS: METOPROLOL TARTRATE 50 MG TAB PO (08:42)
[2021-11-03] MEDS: CYANOCOBALAMIN 1,000 MCG TABLET 1000 MCG PO (08:42)
[2021-11-03] MEDS: POTASSIUM CHLORIDE 10 MEQ TABLET.ER PO (08:42)
[2021-11-03] MEDS: MULTIVITAMINS THERAPEUTIC TAB (*BKC) 1 TABLET PO (08:42)
[2021-11-03] MEDS: FUROSEMIDE 40 MG TABLET PO (08:49)
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
[2021-11-03 12:08] VITALS: PULSE 82
[2021-11-03] MEDS: ASPIRIN 81 MG ENTERIC TABLET PO (12:08)
[2021-11-03] MEDS: SOTALOL HCL 40 MG TABLET 120 MG PO (12:08)
--- NOTE | 2021-11-03 13:04 | PM.DS ---
DS: Admitting Diagnosis Discharge Date 11/03/21 1300 Admitting Diagnosis Hemorrhoid/GI bleeding DS: Discharge Diagnosis Discharge Diagnosis (1) GI bleed: Code(s): K92.2 - Gastrointestinal hemorrhage, unspecified Status: Acute Assessment and Plan: Patient's hemoglobin is stable. H&H q.6 1 single episode of bright red blood per rectum GI consulted Continue to monitor Holding warfarin (2) Gastritis: Code(s): K29.70 - Gastritis, unspecified, without bleeding Status: Acute Assessment and Plan: PPI IV b.i.d. GI cocktail Patient on Squires inhibitors, aspirin. (3) Chronic systolic CHF (congestive heart failure): Code(s): I50.22 - Chronic systolic (congestive) heart failure Status: Chronic Assessment and Plan: Patient appears euvolemic Continue to monitor Daily intake and output (4) Age related osteoporosis: Code(s): M81.0 - Age-related osteoporosis without current pathological fracture Status: Chronic Assessment and Plan: Follow-up in outpatient setting Unchanged (5) Hypertriglyceridemia: Code(s): E78.1 - Pure hyperglyceridemia Status: Chronic Assessment and Plan: Unchanged Follow-up in outpatient setting (6) Hypothyroid: Code(s): E03.9 - Hypothyroidism, unspecified Status: Chronic Assessment and Plan: Continue levothyroxine (7) EL (obstructive sleep apnea): Code(s): G47.33 - Obstructive sleep apnea (adult) (pediatric) Status: Acute Assessment and Plan: Unclear if patient uses CPAP (8) COPD with asthma: Code(s): J44.9 - Chronic obstructive pulmonary disease, unspecified Status: Acute Assessment and Plan: Not actively wheezing Continue home meds (9) Epigastric pain: Code(s): R10.13 - Epigastric pain Status: Acute Assessment and Plan: Likely secondary to gastritis as evidence in CT of abdomen and pelvis. Currently on PPI GI cocktail as needed Gastroenterology has been consulted Likely secondary to medications. DS: Summary Hospital Course Hospital Course: Patient is a 66 year old with a past medical CHF, valve replacement, SVT who presented to the emergency room with complaints bright red blood from her rectum with epigastric pain, nausea but no vomiting. Patient still has pain in her left side. CT of the abdomen and pelvis showed gastric thickening and stranding. Chest x-ray was significant for cardiomegaly and hyperinflation. Lab work was stable upon admission and currently. Patient is ready to go. GI was consulted and stated that patient can get outpatient workup if needed. Cardiology was also consulted and agree with current treatment with PPI. Patient denies any chest pain, shortness of breath, nausea, vomiting, diarrhea, constipation, weakness or fatigue. Patient is being discharged with stable vital signs and laboratory work. Status at Discharge Functional status at discharge: independent ambulation Overall status at discharge: patient is progressing back to baseline Time Spent with Patient Time attestation: Total time spent providing and/or coordinating discharge services: 48 minutes Time spent: Greater than 30 minutes Specific discharge activities: Diagnostic testing, chart review, developing a treatment plan, education, care coordination documentation, physical exam, result review Exam Const: General: cooperative, comfortable, no acute distress, well developed, alert, awake and other (Well-appearing) Nutritional Appearance: average body habitus Orientation/consciousness: patient oriented x3 HENMT: Head: normal to inspection, normocephalic and atraumatic Ears: hearing grossly normal bilaterally General nose exam: Normal external nose present Face and sinus: normal facial exam Mouth: Yes Normal oral and palatal mucosa present Eyes: General: appearance normal, both eyes and all related structures Alignment and Position: alignm
== END 2021-11-03 13:35 | disposition home or self-care (01) ==
LOC: ANHED 15:53 → ANH3MED 17:10
PROVIDERS: Admitting Provider Internal Medicine; Emergency Provider Emergency Medicine; PCP Family Medicine Adolescent Medicine; Visit Provider Nurse Practitioner
DX: K92.2 Gastrointestinal hemorrhage, unspecified (principal); I42.9 Cardiomyopathy, unspecified; I51.7 Cardiomegaly; K29.70 Gastritis, unspecified, without bleeding; K62.5 Hemorrhage of anus and rectum; R10.12 Left upper quadrant pain; R53.1 Weakness; J44.9 Chronic obstructive pulmonary disease, unspecified; E03.9 Hypothyroidism, unspecified; I50.22 Chronic systolic (congestive) heart failure; E78.1 Pure hyperglyceridemia; M06.9 Rheumatoid arthritis, unspecified; I34.1 Nonrheumatic mitral (valve) prolapse; I47.1 Supraventricular tachycardia; E55.9 Vitamin D deficiency, unspecified; M81.0 Age-related osteoporosis without current pathological fracture; Z79.01 Long term (current) use of anticoagulants; Z95.2 Presence of prosthetic heart valve; Z95.810 Presence of automatic (implantable) cardiac defibrillator; Z79.51 Long term (current) use of inhaled steroids; Z79.82 Long term (current) use of aspirin
CPT/HCPCS: 36415; 70450; 71046; 74177; 80053; 81003; 83605; 83880; 84484; 85014; 85018; 85025; 85610; 93005; 94640; 96374; 96375; 96376; 99285; A9270; C9113; G0378; J0131; J2405; Q9967

== ENCOUNTER 2021-11-16 10:00 | Outpatient (RCR) | payer OTHER, SELFPAY ==
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
--- NOTE | 2021-11-02 08:37 | PCPTNOTE ---
Patient called & cancelled scheduled appointment this date due to not feeling very well and feeling very weak.
--- NOTE | 2021-11-04 10:42 | PCPTNOTE ---
Patient called & cancelled scheduled appointment this date due to still not feeling well.
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
== END 2021-11-17 09:16 | disposition home or self-care (01) ==
LOC: ANHPT 10:00
PROVIDERS: PCP Family Medicine Adolescent Medicine; Referring Provider Family Medicine Adolescent Medicine; Visit Provider Family Medicine Adolescent Medicine
DX: S80.01XD Contusion of right knee, subsequent encounter (principal); V89.2XXA Person injured in unspecified motor-vehicle accident, traffic, initial encounter
CPT/HCPCS: 97035; 97110; 97112; 97140; 97162; 97530

== ENCOUNTER 2022-03-18 10:44 | Outpatient (CLI) | payer OTHER, SELFPAY ==
--- NOTE | ~2022-03-18 | XR_ITS ---
XR chest 2V 03/18/2022 11:02 Indication: Shortness of breath Procedure: 2 view chest Comparison: 11/02/2021 Findings: Status post median sternotomy for CABG. Cardiomegaly. There is a prosthetic valve. AICD faisal d tip in the right ventricle. No focal air space disease, pulmonary edema, pleural effusion or suspec susan pneumothorax. Impression: 1: No acute cardiopulmonary disease. Reviewed, dictated and finalized at location A. Impression: 1: No acute cardiopulmonary disease.
== END 2022-03-18 10:45 | disposition home or self-care (01) ==
PROVIDERS: PCP Family Medicine Adolescent Medicine; Visit Provider Nurse Practitioner Adult Health
DX: R93.1 Abnormal findings on diagnostic imaging of heart and coronary circulation (principal)
CPT/HCPCS: 71046

== ENCOUNTER → 2022-04-13 14:09 | Outpatient (CLI) | payer OTHER, SELFPAY ==
--- NOTE | ~2022-04-13 | XR_ITS ---
XR hip LT 2V w AP pelvis DATE: 04/13/2022 14:28 INDICATION: Left hip pain TECHNIQUE: AP pelvis. AP and lateral views of the left hip COMPARISON: 10/07/2020 pelvis FINDINGS: The pubic symphysis and sacroiliac joints are normally aligned. Hip joint spaces are symmet remedios and relatively well preserved. No pelvic or fracture or bone destruction. No fracture or dislocation, avascular necrosis or bone davide truction of the left hip. IMPRESSION: No significant abnormality Reviewed, dictated and finalized at location B. IMPRESSION: No significant abnormality
== END ==
PROVIDERS: PCP Family Medicine Adolescent Medicine; Visit Provider Physician Assistant
DX: M25.552 Pain in left hip (principal)
CPT/HCPCS: 73502

== ENCOUNTER 2022-05-09 09:29 | Outpatient (CLI) | payer OTHER, SELFPAY ==
--- NOTE | ~2022-05-09 | CT_ITS ---
EXAMINATION: CT lumbar spine wo con DATE: 05/09/2022 09:55 INDICATION: Left hip pain and weakness. TECHNIQUE: Computed tomography (CT) of the lumbar spine was performed without intravenous contrast. A utomated exposure control and iterative reconstruction technique were employed. The dose-length produ ct was 532.80 mGy-cm. COMPARISON: None FINDINGS: There is 8 degrees levocurvature of lumbar spine. Vertebral body heights are normal. There is mildly decreased disc height at L3-L4. The following disc levels are specifically discussed: L1-L2: The disc does not extend beyond the endplate margin. There is mild bilateral facet joint osteo arthritis. There is no neural foraminal stenosis. There is no central canal stenosis. L2-L3: The disc is bulging. There is mild bilateral facet joint osteoarthritis. There is mild bilater al neural foraminal stenosis. There is mild central canal stenosis. L3-L4: The disc is bulging. There is severe right and mild left facet joint osteoarthritis. There is mild bilateral neural foraminal stenosis. There is mild central canal stenosis. L4-L5: The disc is bulging. There is severe right and mild left facet joint osteoarthritis. There is mild bilateral neural foraminal stenosis. There is mild central canal stenosis. L5-S1: The disc is bulging. There is moderate bilateral facet joint osteoarthritis. There is mild didier ateral neural foraminal stenosis. There is mild central canal stenosis. IMPRESSION: 1. Mild lumbar spondylosis. Reviewed, dictated and finalized at location B. IMPRESSION: 1. Mild lumbar spondylosis.
== END 2022-05-09 09:30 | disposition home or self-care (01) ==
PROVIDERS: PCP Family Medicine Adolescent Medicine; Visit Provider Physician Assistant
DX: R29.898 Other symptoms and signs involving the musculoskeletal system (principal); M47.816 Spondylosis without myelopathy or radiculopathy, lumbar region
CPT/HCPCS: 72131

== ENCOUNTER 2022-06-29 13:28 | Outpatient (CLI) | payer OTHER, SELFPAY ==
--- NOTE | ~2022-06-29 | US_ITS ---
EXAMINATION: US carotid duplex BI DATE: 06/29/2022 14:20 INDICATION: Left facial numbness TECHNIQUE: Grayscale, color Doppler, and pulsed Doppler images of the cervical carotid arteries were obtained. The degree of vessel stenosis is placed in one of the following categories: normal, <50%, 5 0-69%, >=70% but less than near-occlusion, near-occlusion, or total occlusion. Note that percent sten osis relative to normal distal artery lumen diameter is indirectly measured from velocity measurement s as described by Chato, et al. Radiology 2003; [id number]. Notes: Normal: Peak systolic velocity <125 centimeters/sec and no plaque <50%. Peak systolic velocity <125 ( EDV <40; ICA/CCA PSV ratio <2.0; used these factors only a tandem lesions or low cardiac output or co ntralateral disease) 50-69 %: PSV 125-230 (EDV 40-100; ratio 2-4) >= 70% but less than near occlusion: PSV greater than 230 (EDV > 100; ratio> 4.0) Near Occlusion: PSV that is variable; markedly narrowed lumen Occlusion: Absent flow on color/spectral Doppler and no lumen on sheets scale. COMPARISON: None. FINDINGS: RIGHT: The right common carotid artery (CCA) peak systolic velocity (PSV) is 71 cm/s. The right internal car otid artery (ICA) PSV is 70 cm/s. The right ICA end-diastolic velocity (EDV) is 27 cm/s. The right IC A/CCA PSV ratio is 1.0. The external carotid artery (ECA) PSV is 80 cm/s. There is antegrade flow in the right vertebral artery. LEFT: The left CCA PSV is 65 cm/s. The left ICA PSV is 79 cm/s. The left ICA EDV is 30 cm/s. The left ICA/C CA PSV ratio is 1.2. The ECA PSV is 76 cm/s. There is antegrade flow in the left vertebral artery. IMPRESSION: 1. Less than 50% stenosis in the right internal carotid artery by sonographic criteria. 2. Less than 50% stenosis in the left internal carotid artery by sonographic criteria. Reviewed, dictated and finalized at location A. 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 Less than 50% stenosis in the right internal carotid artery by sonographic rogers herrera. 2. Less than 50% stenosis in the left internal carotid artery by sonographic lópez jain.
== END 2022-06-29 13:29 | disposition home or self-care (01) ==
LOC: ANHIMG 13:29
PROVIDERS: PCP Family Medicine Adolescent Medicine; Visit Provider Internal Medicine Cardiovascular Disease
DX: R20.0 Anesthesia of skin (principal); Z95.2 Presence of prosthetic heart valve; R47.81 Slurred speech; I65.23 Occlusion and stenosis of bilateral carotid arteries
CPT/HCPCS: 93880

== ENCOUNTER 2022-10-18 01:12 | Day surgery (SDC) | payer OTHER, SELFPAY ==
[2022-10-11 13:26] VITALS: BMI 25.8
--- NOTE | 2022-10-11 15:07 | PC.NURSE ---
spoke with pharmacist regarding allergies and cross with Ampicillin, okay to override as very small percentage of relationship. pt has had ampicillin prior with no reactions according to medical records.
[2022-10-18 06:57] VITALS: BP 140/82; PULSE 93; RESP 20; TEMP 36.4; O2SAT 98; BMI 26.7
[2022-10-18] MEDS: LACTATED RINGERS 1,000 ML 150 ML IV CONT (06:59)
[2022-10-18] MEDS: GENTAMICIN 80MG/SOD CHL 50 ML 80 MG/50 ML BAG 100 MG IVPB (07:01)
[2022-10-18 07:12] LABS: Prothrombin Time 12.6 Seconds (11.1-14.7)
[2022-10-18] MEDS: AMPICILLIN 2 GM/NS 100 ML 2 GM/100 ML BAG IVPB (07:25)
--- NOTE | 2022-10-18 07:44 | WPDANESEPPF ---
Anes - Initial Pre Proc Eval Procedure: Operation Date: 10/18/22 08:00 Proposed Procedures p Screening Colonoscopy - Aleks Dacosta MD Date/Time: 10/18/22 07:44 Surgeon: Aleks Dacosta MD Pre Op Diagnosis: hx of tubular adenoma Patient Data Age: 67 Gender: F Height: 1.63 m Weight: 70.7 kg Last Vital Signs Temp 97.6 F 10/18/22 06:57 Pulse 93 10/18/22 06:57 Resp 20 10/18/22 06:57 BP 140/82 10/18/22 06:57 Pulse Ox 98 10/18/22 06:57 O2 Del Method Room Air 10/18/22 06:57 Allergies Allergy/AdvReac Type Severity Reaction Status Date / Time bee pollen Allergy Severe Difficulty Verified 10/18/22 06:43 Breathing celecoxib Allergy Severe Other Verified 10/18/22 06:43 cefprozil Allergy Intermediate Flushing Verified 10/18/22 06:43 cefuroxime Allergy Intermediate Flushing Verified 10/18/22 06:43 Cephalosporins Allergy Intermediate HOT/FLUSHED Verified 10/18/22 06:43 vancomycin Allergy Intermediate Flushing Verified 10/18/22 06:43 Sulfa (Sulfonamide Allergy Unknown Unknown Verified 10/18/22 06:43 Antibiotics) trimethoprim Allergy Unknown UNKNOWN Verified 10/18/22 06:43 Home Medications Medication Instructions Recorded Confirmed Type aspirin 81 mg tablet,delayed 81 mg PO DAILY 06/24/19 10/11/22 History release (Adult Aspirin Regimen) glucosamine-chondroitin 250 mg-200 1 tablet PO DAILY 06/24/19 10/11/22 History mg tablet multivitamin 1 tablet PO DAILY 06/24/19 10/11/22 History sotalol 120 mg tablet (Sotalol AF) 120 mg PO Q12H 06/24/19 10/11/22 History Lactobacills gasseri-Bifidobac 1 cap PO DAILY 08/30/21 10/11/22 History bifidum,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 ([employer]) acetaminophen 650 mg 650 mg PO Q8H PRN headache 08/30/21 10/11/22 History tablet,extended release (Tylenol Arthritis Pain) evening primrose oil-linoleic 1 cap PO BID 08/30/21 10/11/22 History acid-gamolenic acid 1,000 mg capsule vit C,C-Ib-vsblka-lutein-zeaxan 60 1 cap PO DAILY 08/30/21 10/11/22 History mg-13.5 mg-15 mg-2 mg-6 mg capsule (Healthy Eyes Lutein-Zeaxanthin) vitamin B complex 2 tablet PO DAILY 08/30/21 10/11/22 History losartan 25 mg tablet 25 mg PO DAILY #30 tabs 11/03/21 10/11/22 Rx atorvastatin 10 mg tablet 10 mg PO DAILY 03/02/22 10/11/22 History albuterol sulfate 90 mcg/actuation 1 - 2 puff inhalation Q4-6H PRN 06/10/22 10/11/22 Rx aerosol inhaler shortness of breath or wheezing #8.5 grams Trelegy Ellipta 100 mcg-62.5 1 inh inhalation DAILY #60 ea 06/29/22 10/11/22 Rx mcg-25 mcg powder for inhalation (hrwhqbigmfb-vivcgwnxy-gdbzippk) levothyroxine 50 mcg tablet 50 mcg PO .every other day #45 tabs 08/01/22 10/11/22 Rx zolpidem 5 mg tablet 5 mg PO QHS PRN sleep #90 tabs 08/23/22 10/11/22 Rx pantoprazole 40 mg tablet,delayed 40 mg PO QAM #30 tabs 08/29/22 10/11/22 Rx release levothyroxine 75 mcg tablet 75 mcg PO .every other day #45 tabs 09/14/22 10/11/22 Rx Calciumd 1,200 mg PO DAILY 10/11/22 10/11/22 History Prevagen 1 cap PO DAILY 10/11/22 10/11/22 History Vitamin D3 2,000 units PO DAILY 10/11/22 10/11/22 History diclofenac sodium 1 % topical gel 4 g topical QID PRN Pain 10/11/22 10/11/22 History dicyclomine 10 mg capsule 10 mg PO TID PRN Spasms 10/11/22 10/11/22 History epinephrine 0.3 mg/0.3 mL 0.3 mg IM ONCE PRN Allergic 10/11/22 10/11/22 History injection, auto-injector (EpiPen) Reaction furosemide 40 mg tablet 40 mg PO DAILY 10/11/22 10/11/22 History gabapentin 100 mg capsule 100 mg PO QAM 10/11/22 10/11/22 History gabapentin 100 mg capsule 200 mg PO QPM 10/11/22 10/11/22 History metoprolol tartrate 25 mg tablet 25 mg PO BID 10/11/22 10/11/22 History potassium chloride 10 mEq 10 meq PO DAILY 10/11/22 10/11/22 History tablet,extended release(part/cryst) (Klor-Con M) warfarin 2 mg tablet 1 mg PO DIRECTED 10/11/22 10/11/22 History warfarin 2 mg tablet 2 mg PO DIRECTED 10/11/22 10/11/22 History Laboratory Tests
--- NOTE | 2022-10-18 07:57 | PM.HPGS ---
History of Present Illness History of Present Illness Consent: Risks, benefits, and alternatives have been discussed and questions answered. Patient agrees to proceed with procedure. Chief complaint: hx of tubular adenoma Narrative: Chelsea Moreno is a 67 year old female Presents for screening colonoscopy. Patient's current weight appetite and bowel movements are normal. Patient denies abdominal pain. She has had no bleeding. Previous history is significant for colon polyps in 2018. Patient has a distant history of mitral valve replacement. She also was treated for atrial fibrillation. She currently is on Coumadin anticoagulation which is held for procedure. Family history noncontributory. Review of Systems Review of Systems: review of systems noncontributory. [facility] Past Medical History Medical History Afib Age related osteoporosis DEXA scan 08/2019 ANIKET positive (~07/2019) Bilateral sensorineural hearing loss Cardiomegaly Cervical disc disease Chronic systolic CHF (congestive heart failure) Claustrophobia Closed right tarsal navicular fracture Congestive heart failure COPD (chronic obstructive pulmonary disease) Hernia Hypertriglyceridemia Hypothyroid Inflammatory arthritis Mitral valve disease Mitral valve prolapse Osteoporosis Personal history of malignant neoplasm of cervix uteri 1988 Right lower lobe pulmonary nodule Stress fracture of foot SVT (supraventricular tachycardia) Vertigo Vitamin D deficiency Surgical History Surgical History H/O: hysterectomy History of cataract surgery [address] Ramiro Davenport History of heart valve replacement [address] Lesley Ochoa Hx of bilateral breast reduction surgery Pacemaker [address] Shaw Acosta Family History Family History Sibling Family history of mental disorder Family history of malignant neoplasm of breast in first degree relative, Onset Age: 35 Patient's sister is Family history of thyroid disease Family history of malignant neoplasm of bone Hypertension Family history of hypothyroidism Mother Family history of dementia Family history of Alzheimer's disease Family history of diabetes mellitus in first degree relative Diabetes mellitus Family history of arthritis Father Family history of heart disease in male family member before age 55 Family history of cardiovascular disease, Onset Age: 55 Acute myocardial infarction, Onset Age: 54 Social History Social History (Updated 09/30/22 @ 10:28 by Leia Neff MA) Smoking status: Never smoker Second hand tobacco smoke exposure: No Alcohol intake: never Substance use: never Substance use type: does not use Lack of Transportation: No Lack of Food: Never True Current Housing: I Have Housing Concerned About Future Housing: No Difficulty Paying Gas/Electric Bills: No Difficulty Paying for Meds: No Currently Unemployed: No Education: High School Diploma/GED Difficulty w/ Childcare or Family Care: No Living arrangements: with family 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 Gender identity (if verbalized by the patient): Female Sexual Orientation (if Verbalized by the Patient): Straight or Heterosexual Spiritual care concerns: No Agree to blood products: Yes Meds Home Medications and Allergies Home Medications Medication Instructions Recorded Confirmed Type aspirin 81 mg tablet,delayed 81 mg PO DAILY 06/24/19 10/11/22 History release (Adult Aspirin Regimen) glucosamine-chondroitin 250 mg-200 1 tablet PO DAILY 06/24/19 10/11/22 History mg tablet multivitamin 1 tablet PO DAILY 06/24/19 10/11/22 History sotalol 120 mg tablet (Sotalol AF) 120 mg PO Q12H 06/24/19 10/11/22 History [place]
[2022-10-18 08:26] VITALS: BP 111/69; PULSE 90; RESP 27; O2SAT 98
[2022-10-18 08:36] VITALS: BP 132/73; PULSE 86; RESP 24; O2SAT 100
[2022-10-18 08:46] VITALS: BP 123/73; PULSE 87; RESP 21; O2SAT 100
== END 2022-10-18 08:57 | disposition home or self-care (01) ==
PROVIDERS: PCP Family Medicine Adolescent Medicine; Visit Provider Internal Medicine Gastroenterology
PROC: 0DJD8ZZ Inspection of Lower Intestinal Tract, Via Natural or Artificial Opening Endoscopic (ICD-10-PCS; CPT 45378; principal; 2022-10-18 08:00)
DX: Z12.11 Encounter for screening for malignant neoplasm of colon (principal); D12.2 Benign neoplasm of ascending colon; D12.3 Benign neoplasm of transverse colon; K57.30 Diverticulosis of large intestine without perforation or abscess without bleeding; K64.8 Other hemorrhoids; I48.91 Unspecified atrial fibrillation; M81.0 Age-related osteoporosis without current pathological fracture; I50.22 Chronic systolic (congestive) heart failure; J44.9 Chronic obstructive pulmonary disease, unspecified; E03.9 Hypothyroidism, unspecified; E78.1 Pure hyperglyceridemia; I34.1 Nonrheumatic mitral (valve) prolapse; I47.1 Supraventricular tachycardia; E55.9 Vitamin D deficiency, unspecified; Z85.41 Personal history of malignant neoplasm of cervix uteri; Z79.82 Long term (current) use of aspirin; Z79.51 Long term (current) use of inhaled steroids; Z79.01 Long term (current) use of anticoagulants; Z95.4 Presence of other heart-valve replacement; Z95.0 Presence of cardiac pacemaker
CPT/HCPCS: 45385; 36415; 85610; 88305; J0290; J1580; J7120

== ENCOUNTER 2022-11-08 16:34 | Outpatient (CLI) | payer OTHER, SELFPAY ==
--- NOTE | ~2022-11-08 | XR_ITS ---
XR chest 2V 11/08/2022 16:51 Indication: Shortness of breath. Sternal chest pain. Procedure: 2 view chest Comparison: Comparison to multiple prior studies sequentially, with oldest reviewed study dated 10/21. Findings: Moderate cardiomegaly. Pacemaker lead tip in the right ventricle. Status post median sterno juan j for CABG. There is a prosthetic heart valve unchanged. No focal air space disease, pulmonary poppy ma, pleural effusion or suspected pneumothorax. Impression: 1: No acute cardiopulmonary disease. Reviewed, dictated and finalized at location A. Impression: 1: No acute cardiopulmonary disease.
== END 2022-11-08 16:35 | disposition home or self-care (01) ==
PROVIDERS: PCP Family Medicine Adolescent Medicine; Visit Provider Physician Assistant
DX: R06.09 Other forms of dyspnea (principal); J44.9 Chronic obstructive pulmonary disease, unspecified
CPT/HCPCS: 71046

== ENCOUNTER 2022-11-24 09:06 | Outpatient (CLI) | payer OTHER, SELFPAY ==
[2022-11-24 09:30] VITALS: PULSE 71; O2SAT 95
[2022-11-24 09:35] VITALS: PULSE 85; O2SAT 93
[2022-11-24 09:40] VITALS: PULSE 76; O2SAT 96
--- NOTE | 2022-11-24 09:44 | HOMEO2EVAL ---
Evaluation was performed at [facility] Home Oxygen Evaluation RC: Home Oxygen (O2) Evaluation Start: 11/24/22 09:42 Freq: Status: Active Protocol: RPE Activity Type Activity Date Activity User E-sign Co-sign Detail Recorded Client Recorded Date Recorded By Document 11/24/22 09:30 LATANYA [email or web address] 11/24/22 09:44 LATANYA Document 11/24/22 09:35 LATANYA [email or web address] 11/24/22 09:44 LATANYA Document 11/24/22 09:40 LATANYA [email or web address] 11/24/22 09:44 LATANYA 11/24/22 11/24/22 11/24/22 09:30 09:35 09:40 Home O2 Evaluation [Oxygen] -Test Phase Resting Exercise Resting -Oxygen Delivery Room Air Room Air Room Air [Pulse Oximetry] -Pulse Oximetry (90-100 %) 95 93 96 [Pulse Rate] -Pulse Rate (60-100 beats/min) 71 85 76 [Exercise] -Ambulation Distance (feet) 800 -Ambulation Distance (meters) 243.82 [Comments] -Home Oxygen Evaluation Comments No home O2 needed [Charges] -Treatment Charges O2 Evaluation - Outpatient
--- NOTE | 2022-11-24 10:57 | P.PCNPFT_ITS ---
PFT Procedure Performed PFT Procedure Performed Spirometry with Pre/Post Bronchodilator Plethysmography (Lung Vol) Diffusing Cap (DLCO) Flow Vol Loop PFT Interpretation This is a pulmonary function test with pre and post-bronchodilator spirometry, plethysmography and diffusing capacity. The test was performed and results interpreted in accordance with the 2019 and 2005 ATS/ERS Task Force guidelines respectively using the Global Lung Function Initiative-2012 reference equations. Patient demonstrated good effort and cooperation. Reproducibility criteria were met. The quality of the pre bronchodilator spirometry maneuver was Grade A and post bronchodilator spirometry maneuver was Grade A. Findings: Spirometry: there is decreased maximal expiratory airflow at low lung volumes with a mildly concave expiratory flow tracing the contour the inspiratory flow tracing is normal. The pre bronchodilator FVC is 1.48 L, 53% predicted. The pre bronchodilator FEV1 is 1.16 L, 53% predicted. The pre bronchodilator FEV1: FVC ratio is 78%. The post bronchodilator FVC is 1.36 L, representing an 8% decre ase. The post bronchodilator FEV1 is 1.08 L, representing a 7% decrease. The post bronchodilator FEV1: FVC ratio is 79%. Plethysmography: The total lung capacity is 4.86 L, 99% predicted. The f unctional residual capacity is 2.38 L, 85% predicted. The residual volume is 2.35 L, 112% predicted. The slow vital capacity is 2.51 L, 89% predicted. Diffusion capacity: The diffusing capacity unadjusted for hemoglobin and carboxyhemoglobin is 10.0, 49% predicted. The diffusing capacity adjusted for alveolar volume is 4.87, 112% predicted. In comparison to previous pulmonary function testing on 02/12/2018 the post bronchodilator FVC is unchanged from 1.55 L to 1.36 L. The post bronchodilator FEV1 is unchanged from 1.21 L to 1.08 L. The total lung capacity has increased from 3.66 L to 4.86 L. The functional residual capacity is unchanged from 2.46 L to 2.38 L. The residual volume is unchanged from 2.05 L to 2.35 L. The diffusing capacity unadjusted for hemoglobin and carboxyhemoglobin is unchanged from 11.2 to 10.0. The diffusing capacity adjusted for alveolar volume is unchanged from 5.08 to 4.87. Impression: The slow vital capacity is greater than forced vital capacity with a mildly concave expiratory tracing and a moderately severe decrease FVC and FEV1. This is suggestive but not diagnostic of small airways disease as the FEV1:FVC ratio is normal. There is no significant improvement after inhaling a single dose of albuterol. The lung volumes are normal. The diffusing capacity unadjusted for hemoglobin and carboxyhemoglobin is moderately decreased and normalizes when adjusted for alveolar volume. In comparison to previous pulmonary function testing on 02/12/2018 there has been a greater than anticipated time dependent increase in the total lung capacity and no significant change in the FVC, FEV1, functional residual capacity, residual volume or DLCO. Clinical correlation is recommended.
== END 2022-11-24 09:07 | disposition home or self-care (01) ==
LOC: ANHPFT 09:07
PROVIDERS: PCP Family Medicine Adolescent Medicine; Visit Provider Physician Assistant
DX: J44.9 Chronic obstructive pulmonary disease, unspecified (principal); R06.09 Other forms of dyspnea; R94.2 Abnormal results of pulmonary function studies
CPT/HCPCS: 94060; 94618; 94726; 94729

== ENCOUNTER 2023-02-06 10:24 | Outpatient (CLI) | payer OTHER, SELFPAY ==
--- NOTE | ~2023-02-06 | CT_ITS ---
CT Scan of the Chest without Contrast: Clinical Indication: Dyspnea Technique: Contiguous sections were acquired throughout the chest without intravenous contrast. Dose reduction technique was used on this scan by utilizing automated exposure control and iterative recon struction technique. The dose-length product (DLP) was 239.09 mGy-cm. COMPARISON: 03/13/2019 Findings: There is no evidence of any significant mediastinal, hilar or axillary lymphadenopathy. There is card iomegaly with pacemaker device. There is no evidence of pleural or pericardial effusion. The lungs are clear. No pulmonary nodules or infiltrates are noted. Images through the upper abdomen reveal no abnormalities. Impression: Clear lungs. Stable cardiomegaly with pacemaker device. Reviewed, dictated and finalized at location . Impression: Clear lungs. Stable cardiomegaly with pacemaker device.
== END 2023-02-06 10:25 | disposition home or self-care (01) ==
PROVIDERS: PCP Family Medicine Adolescent Medicine; Visit Provider Internal Medicine Pulmonary Disease
DX: R06.09 Other forms of dyspnea (principal); I51.7 Cardiomegaly; Z95.0 Presence of cardiac pacemaker
CPT/HCPCS: 71250

== ENCOUNTER → 2023-02-14 10:59 | Outpatient (CLI) | payer OTHER, SELFPAY ==
--- NOTE | ~2023-02-14 | XR_ITS ---
Left foot Technique: AP, oblique, and lateral views were obtained. Clinical History: Pain Findings: No acute fracture or dislocation is seen. Probable mild degenerative change of the first ta rsometatarsal joint. Soft tissues are unremarkable. Impression: Mild degenerative change of the first tarsometatarsal joint. Reviewed, dictated and finalized at location . Impression: Mild degenerative change of the first tarsometatarsal joint.
--- NOTE | ~2023-02-14 | XR_ITS ---
Right foot Technique: AP, oblique, and lateral views were obtained. Clinical History: Pain Findings: No acute fracture or dislocation is seen. There is minimal degenerative change of the first MTP joint. Soft tissues are unremarkable. Impression: Minimal degenerative change of the first metatarsophalangeal joint. Reviewed, dictated and finalized at [facility]. Impression: Minimal degenerative change of the first metatarsophalangeal joint.
== END ==
PROVIDERS: PCP Family Medicine Adolescent Medicine; Visit Provider Nurse Practitioner Family
DX: M79.671 Pain in right foot (principal); M79.672 Pain in left foot
CPT/HCPCS: 73630

== ENCOUNTER 2023-07-26 00:52 | Day surgery (SDC) | payer OTHER, SELFPAY ==
[2023-07-25 15:34] VITALS: BMI 26.1
[2023-07-26] VITALS (15 sets, daily range): BP systolic 99–141; BP diastolic 52–76; PULSE 74–89; RESP 12–20; TEMP 36–36.2; O2SAT 94–100; BMI 26.9
[2023-07-26 07:35] LABS: Basophils Percent Auto 0.4 % (0.2-1.2); Eosinophils Absolute Auto 0.1 K/mm3 (0-0.3); Hematocrit 42.8 % (37.0-47.0); Hemoglobin 14.3 g/dL (12.0-15.0); Immature Granulocyte Absolute 0.02 K/mm3 (0.00-0.031); Immature Granulocyte Percent A 0.3 % (0-0.5); Lymphocytes Absolute Auto 1.17 K/mm3 (0.9-3.2); Lymphocytes Percent Auto 16.9 % (18.3-44.2); Mean Corpuscular HGB Conc 33.4 g/dl (32-36); Mean Corpuscular Volume 89.9 fl (80-100); Mean Platelet Volume 10.7 fl (7.4-10.4); Monocytes Absolute Auto 0.6 K/mm3 (0.1-0.6); Monocytes Percent Auto 8.5 % (2.6-8.5); Neutrophils Absolute Auto 5.1 K/mm3 (1.3-6.7); Neutrophils Percent Auto 72.9 % (45.5-73.1); Platelet Count Result 172 k/mm3 (150-375); Red Blood Count 4.76 M/mm3 (4.2-5.4); Red Cell Distribution Width 14.2 % (11.5-14.5); White Blood Count 6.9 K/mm3 (4.5-10.0)
[2023-07-26 07:45] LABS: Anion Gap 10 mmol/L (8-16); Blood Urea Nitrogen 18 mg/dL (7-17); Calcium 9.2 mg/dL (8.4-10.2); Carbon Dioxide 25 mmol/L (22-30); Chloride 105 mmol/L (98-107); Estimated CRCL calculation 84 ml/min; Estimated Glomerular Filt Rate > 60; Glucose 99 mg/dL (65-110); Potassium 3.8 mmol/L (3.4-5.0); Sodium 140 mmol/L (137-145)
[2023-07-26 07:48] LABS: INR 0.9; Prothrombin Time 12.7 Seconds (11.1-14.7)
--- NOTE | 2023-07-26 08:42 | PM.IMHP ---
H&P: HPI History of Present Illness Date/Time: 07/26/23 08:42 Chief Complaint: Chest pain Narrative: Patient presents for outpatient elective cardiac catheterization. Chelsea is a 67 year old female with history of moderate to severe mitral regurgitation s/p mechanical mitral valve, non-ischemic cardiomyopathy with recovered LVEF, VT s/p ICD who is referred for cardiac catheterization for chest pain in the setting of abnormal CCTA. Coronary CTA in 01/2022 showed no significant disease in the RCA, left coronary artery evaluation significantly limited by breathing artifact, however, no grossly significant left main coronary artery disease. Calcified plaque in proximal LAD, the extent of stenosis cannot be evaluated due to motion artifact. Calcium score of 71.3. Review of Systems Review of Systems: All systems reviewed & are unremarkable except as noted in HPI and below (HPI) [facility] Past Medical History Medical History Afib Age related osteoporosis DEXA scan 08/2019 ANIKET positive (~07/2019) Bilateral sensorineural hearing loss Cardiomegaly Cervical disc disease Chronic systolic CHF (congestive heart failure) Claustrophobia Closed right tarsal navicular fracture Congestive heart failure COPD (chronic obstructive pulmonary disease) Hernia Hypertriglyceridemia Hypothyroid Inflammatory arthritis Mitral valve disease Mitral valve prolapse Osteoporosis Personal history of malignant neoplasm of cervix uteri 1988 Right lower lobe pulmonary nodule Stress fracture of foot SVT (supraventricular tachycardia) Vertigo Vitamin D deficiency Surgical History Surgical History H/O hernia repair H/O: hysterectomy History of cataract surgery [address] Ramiro Davenport History of heart valve replacement [address] Lesley Ochoa Hx of bilateral breast reduction surgery Pacemaker [address] Shaw Acosta Family History Family History Sibling Family history of mental disorder Family history of malignant neoplasm of breast in first degree relative, Onset Age: 35 Patient's sister is Family history of thyroid disease Family history of malignant neoplasm of bone Hypertension Family history of hypothyroidism Mother Family history of dementia Family history of Alzheimer's disease Family history of diabetes mellitus in first degree relative Diabetes mellitus Family history of arthritis Father Family history of heart disease in male family member before age 55 Family history of cardiovascular disease, Onset Age: 55 Acute myocardial infarction, Onset Age: 54 Social History Social History Smoking packs per day: 0 Smoking cigarettes per day: 0.0 Years smoked: 0 Smoking pack-years: 0.00 Smoking status: Never smoker Second hand tobacco smoke exposure: No Alcohol intake: never Substance use: never Substance use type: does not use Lack of Transportation: No Lack of Food: Never True Current Housing: I Have Housing Concerned About Future Housing: No Difficulty Paying Gas/Electric Bills: No Difficulty Paying for Meds: No Currently Unemployed: No Education: High School Diploma/GED Difficulty w/ Childcare or Family Care: No Living arrangements: with family Additional living arrangements comments: AND DOG 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
--- NOTE | 2023-07-26 08:47 | WPDMODSED ---
Moderate Sedation Note-Pt Data Patient Data Diagnosis: Chest pain, abnormal CCTA Present Complaint: Chest pain, abnormal CCTA Procedure to be performed/Plan: Coronary angiography, left heart cath, +/- PCI Allergies Allergy/AdvReac Type Severity Reaction Status Date / Time bee pollen Allergy Severe Difficulty Verified 07/26/23 07:13 Breathing celecoxib Allergy Severe Other Verified 07/26/23 07:13 cefprozil Allergy Intermediate Flushing Verified 07/26/23 07:13 cefuroxime Allergy Intermediate Flushing Verified 07/26/23 07:13 Cephalosporins Allergy Intermediate HOT/FLUSHED Verified 07/26/23 07:13 vancomycin Allergy Intermediate Flushing Verified 07/26/23 07:13 Sulfa (Sulfonamide Allergy Unknown Unknown Verified 07/26/23 07:13 Antibiotics) trimethoprim Allergy Unknown UNKNOWN Verified 07/26/23 07:13 Home Medications Medication Instructions Recorded Confirmed Type aspirin 81 mg tablet,delayed 81 mg PO DAILY 06/24/19 07/26/23 History release (Adult Aspirin Regimen) multivitamin 1 tablet PO DAILY 06/24/19 07/26/23 History sotalol 120 mg tablet (Sotalol AF) 120 mg PO Q12H 06/24/19 07/26/23 History Lactobacills gasseri-Bifidobac 1 cap PO DAILY 08/30/21 07/26/23 History bifidum,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 ([employer]) losartan 25 mg tablet 25 mg PO DAILY #30 tabs 11/03/21 07/26/23 Rx metoprolol tartrate 25 mg tablet 25 mg PO BID 10/11/22 07/26/23 History furosemide 40 mg tablet 40 mg PO DAILY #90 tabs 01/07/23 07/26/23 Rx pantoprazole 40 mg tablet,delayed 40 mg PO QAM #30 tabs 02/13/23 07/26/23 Rx release levothyroxine 75 mcg tablet 75 mcg PO .every other day #45 tabs 03/12/23 07/26/23 Rx rosuvastatin 20 mg tablet 20 mg PO EVERY OTHER DAY 03/15/23 07/26/23 History zolpidem 5 mg tablet (Ambien) 5 mg PO QHS 03/15/23 07/26/23 History silver sulfadiazine 1 % topical 1 applic topical BID #85 grams 04/05/23 07/26/23 Rx cream albuterol sulfate 90 mcg/actuation 1 puff inhalation Q4H PRN 05/23/23 07/26/23 History aerosol inhaler Shortness Of Breath warfarin 2 mg tablet 2 mg PO DAILY 05/23/23 07/26/23 History levothyroxine 50 mcg tablet 50 mcg PO .every other day #45 tabs 05/28/23 07/26/23 Rx potassium chloride 10 mEq 10 meq PO DAILY #90 tabs 05/28/23 07/26/23 Rx tablet,extended release(part/cryst) (Klor-Con M) triamcinolone acetonide 0.1 % 1 applic topical BID PRN 06/07/23 07/26/23 Rx topical cream dermatitis #30 grams clobetasol 0.05 % topical ointment 1 applic topical QHS #30 grams 06/12/23 07/26/23 Rx dicyclomine 10 mg capsule 10 mg PO BID PRN abdominal pain 06/30/23 07/26/23 Rx #180 caps calcium 600 mg capsule 1,200 mg PO DAILY 07/26/23 07/26/23 History estradiol 0.01% (0.1 mg/gram) 1 g vaginal 3XW PRN Itching 07/26/23 07/26/23 History vaginal cream ielcfrjraky-ztkfdwhsj-vla C-Mn 500 1 cap PO DAILY 07/26/23 07/26/23 History mg-400 mg capsule (Glucosamine Chondroitin Maximum Strength) Current Medications: Active Medications Sodium Chloride (Normal Saline Iv) 500 mls @ 100 mls/hr IV CONT .Q5H LEONOR Sedation/Anesthesia: No previous sedation/anesthesia problems (including family history). [facility] Past Medical History Medical History Afib Age related osteoporosis DEXA scan 08/2019 ANIKET positive (~07/2019) Bilateral sensorineural hearing loss Cardiomegaly Cervical disc disease Chronic systolic CHF (congestive heart failure) Claustrophobia Closed right tarsal navicular fracture Congestive heart failure COPD (chronic obstructive pulmonary disease) Hernia Hypertriglyceridemia Hypothyroid Inflammatory arthritis Mitral valve disease Mitral valve prolapse Osteoporosis Personal history of malignant neoplasm of cervix uteri 1988 Right lower lobe pulmonary nodule Stress fracture of foot SVT (supraventricular tachycardia) Vertigo Vitamin D deficiency Surgical History Surgical History (Reviewed 07/26/23 @ 08:4
--- NOTE | 2023-07-26 08:48 | WPDCARDPROC ---
Cardiac Cath Procedure Note Date of procedure:: 07/26/23 Performing physician:: CATHETERIZATION LABORATORY REPORT Procedure Date: 07/26/2022 Contracts Analyst: Julio Hair M.D., [facility]? Referring Physician: Mitch Elizabeth M.D. ? Anesthesia: Versed and Fentanyl were ordered and given in my presence at 08:57, procedure ended at 09:35. Supervision of nurse monitored moderate sedation with Versed and Fentanyl was provided for 38 minutes. Total of Versed 2.5mg and Fentanyl 100mcg were administered by the Couturiere RN Leah Rueda. Pre-op Diagnosis: Coronary artery disease Post-op Diagnosis: 1. Non-obstructive mild coronary artery disease 2. Left ventricular end-diastolic pressure of 13mmHg Procedure(s): 1. Moderate sedation 2. Ultrasound-guided access of the right radial artery 3. Ultrasound-guided access of the right common femoral artery 4. Coronary angiography 5. Left heart cath 6. Angioseal closure of the right common femoral artery Access Site: Right radial artery Right common femoral artery Brief History and Clinical Indications: Patient is a 67 year old female with history of moderate to severe mitral regurgitation s/p mechanical mitral valve, non-ischemic cardiomyopathy with recovered LVEF, VT s/p ICD who is referred for cardiac catheterization for chest pain in the setting of abnormal CCTA. Coronary CTA in 01/2022 showed no significant disease in the RCA, left coronary artery evaluation significantly limited by breathing artifact, however, no grossly significant left main coronary artery disease. Calcified plaque in proximal LAD, the extent of stenosis cannot be evaluated due to motion artifact. Calcium score of 71.3. All risks, benefits and alternatives to left heart catheterization with or without percutaneous coronary intervention was discussed at length with the patient. Risk of complications including but not limited to bleeding, infection, arrhythmia, stroke, worsening kidney function, blood loss, groin hematoma, limb loss, emergency coronary artery bypass grafting, and even were discussed with the patient and all questions were answered. The patient understood and wished to proceed. Time out called, patient name, date of , medical record number, allergies, procedure performed, identify Contracts Analyst, patient and staff member concurred with accurate data, procedure carried on. Findings: LEFT HEART CATHETERIZATION FINDINGS: 1. Left main: The left main coronary artery is widely patent without any significant obstructive disease. The left main is quite long. 2. Left anterior descending: The proximal LAD has mild disease of about 30-40%. Otherwise, remainder of the LAD and the diagonal branches have mild luminal irregularities without any significant obstructive angiographic disease. 3. Ramus: Large caliber Ramus with mild luminal irregularities. 4. Left circumflex: The left circumflex artery and the main marginal branches have mild luminal irregularities without any significant obstructive angiographic disease. 5. Right coronary artery: The RCA has mild luminal irregularities without any significant obstructive angiographic disease. The RCA is the dominant vessel. 6. Left ventricle: A. End-diastolic pressure 13mmHg. B. LV gram deferred. C. No significant gradient across aortic valve on catheter pullback. Description of Procedure: Informed consent signed and placed in the chart. Patient transferred to laboratory tester room. Prepped and draped in usual sterile fashion. 2% lidocaine injected subcutaneously in right wrist area. 22-gauge venipuncture catheter used to access the right radial artery under ultrasound guidance. 6-FR slender sheath placed in right radial artery. Nitroglycerine and Verapamil were given intraarterial through the sheath. Versacore wire advanced under fluoroscopy 5F Tig 4 diagnostic catheter engaged Right Coronary Artery Multiple orthogonal angiogram obtained and reviewed Unable to engag
== END 2023-07-26 13:50 | disposition home or self-care (01) ==
PROVIDERS: PCP Family Medicine Adolescent Medicine; Visit Provider Internal Medicine
PROC: 4A023N7 Measurement of Cardiac Sampling and Pressure, Left Heart, Percutaneous Approach (ICD-10-PCS; CPT 93452; principal; 2023-07-26 08:30)
PROC: (CPT 36140; 2023-07-26 08:30)
DX: I25.10 Atherosclerotic heart disease of native coronary artery without angina pectoris (principal); I42.8 Other cardiomyopathies; E03.9 Hypothyroidism, unspecified; E55.9 Vitamin D deficiency, unspecified; I48.91 Unspecified atrial fibrillation; I50.22 Chronic systolic (congestive) heart failure; J44.9 Chronic obstructive pulmonary disease, unspecified; Z95.2 Presence of prosthetic heart valve; M81.0 Age-related osteoporosis without current pathological fracture; Z95.0 Presence of cardiac pacemaker; Z86.79 Personal history of other diseases of the circulatory system; Z85.41 Personal history of malignant neoplasm of cervix uteri; Z80.3 Family history of malignant neoplasm of breast; Z80.8 Family history of malignant neoplasm of other organs or systems; Z82.49 Family history of ischemic heart disease and other diseases of the circulatory system; Z79.82 Long term (current) use of aspirin; Z79.51 Long term (current) use of inhaled steroids; Z79.01 Long term (current) use of anticoagulants
CPT/HCPCS: 36140; 36415; 80048; 85025; 85610; 93458; A9270; C1760; C1769; C1887; C1894; G0269; J1644; J2250; J2305; J3010; J7040

== ENCOUNTER 2023-10-24 08:28 | Outpatient (CLI) | payer OTHER, SELFPAY ==
--- NOTE | ~2023-10-24 | MM_ITS ---
EXAMINATION: MM screening gael BI w keo HISTORY: Screening TECHNIQUE: Craniocaudal and mediolateral oblique 3-D tomosynthesis images were obtained and synthetic 2-D images were generated. CAD analysis was submitted and interpreted. COMPARISON: 10/24/2016 BREAST PARENCHYMAL COMPOSITION: Not dense: There are scattered areas of fibroglandular density. FINDINGS: There is distortion of both breasts, consistent with prior breast reduction surgery. There is no evidence of suspicious mass, calcification, or architectural distortion to suggest malignancy i n either breast. There has been no suspicious interval change. IMPRESSION: 1. No mammographic evidence of malignancy. 2. Recommend routine screening mammography in one year. BI-RADS Category 1: Negative Reviewed, dictated and finalized at location A.
== END 2023-10-24 08:29 | disposition home or self-care (01) ==
PROVIDERS: PCP Family Medicine Adolescent Medicine; Visit Provider Family Medicine Adolescent Medicine
DX: Z12.31 Encounter for screening mammogram for malignant neoplasm of breast (principal)
CPT/HCPCS: 77063; 77067

== ENCOUNTER 2024-01-02 02:10 | Day surgery (SDC) | payer OTHER, SELFPAY ==
[2023-12-20 13:09] VITALS: BMI 25.2
--- NOTE | 2023-12-20 14:48 | PC.NURSE ---
Spoke with Jake in pharmacy regarding pt. allergies and ordering antibiotics for Mitral valve replacement. After reviewing her profile he okayed to order the Ampicillin and Gentamycin per our procedure orders.
--- NOTE | 2023-12-20 14:53 | PC.NURSE ---
Spoke with _patient_ regarding medication _warfarin_. Pt. verbalizes understanding of bridging the warfarin with Lovenox and orders reviewed with her per Petty BERMUDEZ from Dr. De Dios office and the Endoscopist will instruct them when to restart after the procedure.
[2024-01-02 07:44] VITALS: BP 138/72; PULSE 72; RESP 18; TEMP 36; O2SAT 100; BMI 26.1
[2024-01-02] MEDS: GENTAMICIN 80MG/SOD CHL 50 ML 80 MG/50 ML BAG 100 MG IVPB (07:59)
[2024-01-02] MEDS: LACTATED RINGERS 1,000 ML 150 ML IV CONT (08:00)
--- NOTE | 2024-01-02 08:30 | WPDANESEPPF ---
Anes - Initial Pre Proc Eval Procedure: Operation Date: 01/02/24 09:00 Proposed Procedures p Esophagogastroduodenoscopy - Hiren Lacy MD Date/Time: 01/02/24 08:30 Surgeon: Hiren Lacy MD Pre Op Diagnosis: Dysphagia Patient Data Age: 68 Gender: F Height: 1.61 m Weight: 68 kg Last Vital Signs Temp 96.8 F L 01/02/24 07:44 Pulse 72 01/02/24 07:44 Resp 18 01/02/24 07:44 BP 138/72 01/02/24 07:44 Pulse Ox 100 01/02/24 07:44 O2 Del Method Room Air 01/02/24 07:44 Allergies Allergy/AdvReac Type Severity Reaction Status Date / Time bee pollen Allergy Severe Difficulty Verified 01/02/24 07:42 Breathing celecoxib Allergy Severe Other Verified 01/02/24 07:42 cefprozil Allergy Intermediate Flushing Verified 01/02/24 07:42 cefuroxime Allergy Intermediate Flushing Verified 01/02/24 07:42 Cephalosporins Allergy Intermediate HOT/FLUSHED Verified 01/02/24 07:42 vancomycin Allergy Intermediate Flushing Verified 01/02/24 07:42 Sulfa (Sulfonamide Allergy Unknown Unknown Verified 01/02/24 07:42 Antibiotics) trimethoprim Allergy Unknown UNKNOWN Verified 01/02/24 07:42 Home Medications Medication Instructions Recorded Confirmed Type aspirin 81 mg tablet,delayed 81 mg PO DAILY 06/24/19 12/20/23 History release (Adult Aspirin Regimen) sotalol 120 mg tablet (Sotalol AF) 120 mg PO Q12H 06/24/19 12/20/23 History losartan 25 mg tablet 25 mg PO DAILY #30 tabs 11/03/21 12/20/23 Rx metoprolol tartrate 25 mg tablet 25 mg PO BID 10/11/22 12/20/23 History rosuvastatin 20 mg tablet 20 mg PO EVERY OTHER DAY 03/15/23 12/20/23 History warfarin 2 mg tablet 2 mg PO DAILY 05/23/23 01/02/24 History levothyroxine 50 mcg tablet 50 mcg PO .every other day #45 tabs 05/28/23 12/20/23 Rx potassium chloride 10 mEq 10 meq PO DAILY #90 tabs 05/28/23 12/20/23 Rx tablet,extended release(part/cryst) (Klor-Con M) triamcinolone acetonide 0.1 % 1 applic topical BID PRN 06/07/23 12/20/23 Rx topical cream dermatitis #30 grams estradiol 0.01% (0.1 mg/gram) 1 g vaginal 3XW PRN Itching 07/26/23 12/20/23 History vaginal cream [id number]-[id number]-oiw C-Mn 500 1 cap PO DAILY 07/26/23 12/20/23 History mg-400 mg capsule (Glucosamine Chondroitin Maximum Strength) pantoprazole 40 mg tablet,delayed 40 mg PO QAM #30 tabs 08/06/23 12/20/23 Rx release albuterol sulfate 90 mcg/actuation 1 puff inhalation Q4H PRN 08/16/23 12/20/23 Rx aerosol inhaler Shortness Of Breath #8.5 grams furosemide 40 mg tablet 40 mg PO DAILY #90 tabs 09/29/23 12/20/23 Rx dicyclomine 10 mg capsule 10 mg PO BID PRN abdominal pain 11/06/23 12/20/23 Rx #180 caps levothyroxine 75 mcg tablet 75 mcg PO .every other day #45 tabs 11/17/23 12/20/23 Rx zolpidem 6.25 mg tablet,extended 6.25 mg PO QHS #90 tabs 12/06/23 12/20/23 Rx release,multiphase Bifidobacterium infantis 4 mg 4 mg PO DAILY 12/20/23 12/20/23 History capsule (Align) Calcium + Vitamin D 1,200 mg PO DAILY 12/20/23 12/20/23 History Evening Albion 1,000 mg PO DAILY 12/20/23 12/20/23 History Memory Focus 1 tab-cap PO DAILY 12/20/23 12/20/23 History Vitamin D3 2 gummy PO DAILY 12/20/23 12/20/23 History Women's Multivitamin Gummies 1 tab-cap PO DAILY 12/20/23 12/20/23 History albuterol sulfate 2.5 mg/3 mL 2.5 mg continuous nebulization 12/20/23 12/20/23 History (0.083 %) solution for nebulization Q4-6H PRN Shortness Of Breath Or Wheezing clobetasol 0.05 % topical ointment 1 applic topical QHS PRN Rash 12/20/23 12/20/23 History cyanocobalamin (vitamin B-12) 1,000 mcg PO DAILY 12/20/23 12/20/23 History 1,000 mcg lozenges glucosamine-chondroitin 1,500 mg PO DAILY 12/20/23 12/20/23 History silver sulfadiazine 1 % topical 1 applic topical BID PRN Rash 12/20/23 12/20/23 History cream vitamin A-vitamin C-vit E-min 1 tablet PO DAILY 12/20/23 12/20/23 History tablet Patient hx anesthesia problems: none Family hx anesthesia problems: none R
--- NOTE | 2024-01-02 08:52 | PM.HPGS ---
History of Present Illness History of Present Illness Consent: Risks, benefits, and alternatives have been discussed and questions answered. Patient agrees to proceed with procedure. Chief complaint: Dysphagia Narrative: Chelsea Moreno is a 68 year old female here with dysphagia and remote history of esophageal dilation Review of Systems Review of Systems: All systems reviewed & are unremarkable except as noted in HPI and below PMFSH Past Medical History Medical History (Updated 11/28/23 @ 11:26 by Kevin Velasquez MD) Afib Age related osteoporosis DEXA scan 08/2019 ANIKET positive (~07/2019) Bilateral sensorineural hearing loss Cardiomegaly Cerebrovascular disease Cervical disc disease Chronic systolic CHF (congestive heart failure) Claustrophobia Closed right tarsal navicular fracture Congestive heart failure COPD (chronic obstructive pulmonary disease) Headache Hernia Hypertriglyceridemia Hypothyroid Inflammatory arthritis Mitral valve disease Mitral valve prolapse Numbness and tingling of left side of face Osteoporosis Personal history of malignant neoplasm of cervix uteri 1988 Right lower lobe pulmonary nodule Stress fracture of foot SVT (supraventricular tachycardia) Trigeminal neuralgia of left side of face Vertigo Vitamin D deficiency Surgical History Surgical History H/O hernia repair H/O: hysterectomy History of cataract surgery [address] Ramiro Davenport History of heart valve replacement [address] Lesley Ochoa Hx of bilateral breast reduction surgery Pacemaker [address] Shaw Acosta Family History Family History Sibling Family history of mental disorder Family history of malignant neoplasm of breast in first degree relative, Onset Age: 35 Patient's sister is Family history of thyroid disease Family history of malignant neoplasm of bone Hypertension Family history of hypothyroidism Mother Family history of dementia Family history of Alzheimer's disease Family history of diabetes mellitus in first degree relative Diabetes mellitus Family history of arthritis Father Family history of heart disease in male family member before age 55 Family history of cardiovascular disease, Onset Age: 55 Acute myocardial infarction, Onset Age: 55 Social History Social History Smoking packs per day: 0 Smoking cigarettes per day: 0.0 Years smoked: 0 Smoking pack-years: 0.00 Smoking status: Never smoker Second hand tobacco smoke exposure: No Alcohol intake: current Substance use: never Substance use type: does not use Do You Feel Safe in your Home?: Yes Lack of Transportation: No Lack of Food: Never True Current Housing: I Have Housing Concerned About Future Housing: No Difficulty Paying Gas/Electric Bills: No Difficulty Paying for Meds: No Currently Unemployed: No Education: High School Diploma/GED Difficulty w/ Childcare or Family Care: No Living arrangements: with family Additional living arrangements comments: AND DOG 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 Gender identity (if verbalized by the patient): Female Sexual Orientation (if Verbalized by the Patient): Straight or Heterosexual Spiritual care concerns: No Agree to blood products: Yes Meds Home Medications and Allergies Home Medications Medication Instructions Recorded Confirmed Type aspirin 81 mg tablet,delayed 81 mg PO DAILY 06/24/19 12/20/23 History release (Adult Aspirin Regimen) sotalol 120 mg tablet (Sotalol AF) 120 mg PO Q12H 06/24/19 12/20/23 History losartan 25 mg tablet 25 mg PO DAILY #30 tabs 11/03/21 12/20/23 Rx metoprolol tartrate 25 mg tablet 25 mg PO BID 10/11/22 12/20/23 History rosu
[2024-01-02 09:10] VITALS: BP 135/69; PULSE 79; RESP 13; O2SAT 96
[2024-01-02 09:20] VITALS: BP 134/77; PULSE 77; RESP 15; O2SAT 97
[2024-01-02 09:30] VITALS: BP 78/77; PULSE 76; RESP 15; O2SAT 98
== END 2024-01-02 09:39 | disposition home or self-care (01) ==
PROVIDERS: PCP Family Medicine Adolescent Medicine; Visit Provider Internal Medicine Gastroenterology
PROC: 0DJ08ZZ Inspection of Upper Intestinal Tract, Via Natural or Artificial Opening Endoscopic (ICD-10-PCS; CPT 43235; principal; 2024-01-02 09:00)
DX: K22.2 Esophageal obstruction (principal); K21.00 Gastro-esophageal reflux disease with esophagitis, without bleeding; K44.9 Diaphragmatic hernia without obstruction or gangrene; I48.91 Unspecified atrial fibrillation; I50.22 Chronic systolic (congestive) heart failure; J44.9 Chronic obstructive pulmonary disease, unspecified; E03.9 Hypothyroidism, unspecified; M81.0 Age-related osteoporosis without current pathological fracture; I47.10 Supraventricular tachycardia, unspecified; E55.9 Vitamin D deficiency, unspecified; Z95.0 Presence of cardiac pacemaker; Z95.4 Presence of other heart-valve replacement; Z79.82 Long term (current) use of aspirin; Z79.01 Long term (current) use of anticoagulants; Z79.51 Long term (current) use of inhaled steroids
CPT/HCPCS: 43249; 88305; C1726; J1580; J2704; J7120

== ENCOUNTER 2024-05-21 10:13 | Outpatient (CLI) | payer OTHER, SELFPAY ==
--- NOTE | ~2024-05-21 | CT_ITS ---
Non-contrast CT scan of the Abdomen and Pelvis Clinical indication: Diarrhea Technique: 2.5 mm axial scans were obtained through the abdomen and pelvis without intravenous or or al contrast. Dose reduction technique was used on this scan by utilizing automated exposure control a nd iterative reconstruction technique. The dose-length product (DLP) was 500.96 mGy-cm. COMPARISON: 11/02/2021 Findings: Images through the lung bases reveal no abnormalities. Cardiomegaly with pacemaker device noted. There is no evidence of renal or ureteral calculi. The kidneys and the ureters are nondilated. The liver, spleen, pancreas, gallbladder, and adrenals appear normal. There is no aortic aneurysm. There is no evidence of bowel obstruction. There is focal inflammatory change with central fat attenu ation adjacent to the proximal sigmoid colon, compatible with epiploic appendagitis. There is also fo rudy mild inflammatory change adjacent to a diverticulum at the proximal transverse colon, compatible with very mild acute diverticulitis. No abscess or free air. Images through the pelvis were performed. There is no evidence of ascites or lymphadenopathy. Urinary bladder unremarkable. No pelvic mass seen. No ascites. Impression: Very mild acute diverticulitis of the proximal transverse colon. Epiploic appendagitis at the proximal sigmoid colon. Reviewed, dictated and finalized at location . Impression: Very mild acute diverticulitis of the proximal transverse colon. Epiploic appendagitis at the proximal sigmoid colon.
== END 2024-05-21 10:14 | disposition home or self-care (01) ==
LOC: MICIMG 10:14
PROVIDERS: PCP Family Medicine Adolescent Medicine; Visit Provider Nurse Practitioner Family
DX: K57.32 Diverticulitis of large intestine without perforation or abscess without bleeding (principal)
CPT/HCPCS: 74176

== ENCOUNTER 2024-11-12 10:40 | Outpatient (RCR) | payer OTHER, SELFPAY ==
--- NOTE | 2024-11-12 12:22 | PTOPEVDC ---
Assessment and note entered by Harshad Wiley, PT Thank you for referring Chelsea Moreno to [facility].? An evaluation has been completed. No further treatment is needed. Evaluation Information Assessment Status Evaluation ICD-10 Condition Codes (PT) BPPV H81.12 Onset June 2024 Subjective Information Reports that she first noted symptoms that when she moves or tries to move too fast she notices dizziness. She also gets dizzy rolling over in bed or walking down hallways. The feeling she gets is lightheadedness and feels as if her head is going to tip over. She typically sleeps flat on her back because she uses a CPAP. She was on a medication called Tymlus that she just stopped taking in September. Reported Pain Level Pain Score 0: Self Report Assessment PT Clinical Summary Patient presents negative for BPPV at this time. She did present with some lightheadedness this session seemingly unrelated to vestibular symptoms . Patient was educated in HEP per request to address VOR tracking and smooth pursuit to address deficits noted this session. Majority of VOR issues were in right sided tracking. Will discharge per request to HEP. Plan of Care PT Services Indicated Yes
== END 2024-11-12 12:55 | disposition home or self-care (01) ==
LOC: ANHGOSHPT 10:40
PROVIDERS: PCP Family Medicine Adolescent Medicine; Visit Provider Family Medicine Adolescent Medicine
DX: H81.10 Benign paroxysmal vertigo, unspecified ear (principal)
CPT/HCPCS: 97112; 97161

== ENCOUNTER 2025-03-04 14:38 | Outpatient (CLI) | payer OTHER, SELFPAY ==
--- NOTE | ~2025-03-04 | XR_ITS ---
XR hip BI 2V w AP pelvis 03/04/2025 15:04 Indication: Hip pain Procedure: AP pelvis and 2 views each hip Comparison: 04/13/2022 Findings: No fracture, subluxation or dislocation. Pelvic rings intact. Sacral foramen are symmetric. Impression: 1: No acute bone or joint abnormality. Reviewed, dictated and finalized at location A. Impression: 1: No acute bone or joint abnormality.
--- OUTSIDE RECORDS SUMMARY | 2025-03-04 15:08 | XMS_ITS | Clinical Summary ---
Author Organization [facility] Address [address] [place] [address] Care Team Providers Care Developing Machine Operator Name Role Phone Kevin Velasquez MD Primary Care Provider + Source Comments [facility],non-owned Affiliates and Associated Physician Practices is amultiple site organization consisting of ambulatory clinics and hospital sitesin [place], [place], [place] and [place]. This disclosure is being madepursuant to the Care Everywhere program and may not contain all information available regarding this patient. 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 Gender Identity Not on file Sexual Orientation Not on file Plan of Treatment Health Maintenance Due Date Last Done Comments BONE DENSITY TESTING 1955 COLOGUARD (AGES 45-75) - COL ON CA SCREENING 1954 COLON MONITORING 1954 COLONOSCOPY - COLON CA SCREENING 1954 CT COLONOGRAPHY - COLON CA SCREENING 1954 Colorectal Cancer Screening 1954 FIT - COLON CA SCREENING 1954 FLEX SIG - COLON CA SCREENING 1954 LIPID TESTING 1954 MAMMOGRAM 1954 MEDICARE AWV 12 MONTHS 1954 HEPATITIS C SCREENING 09/09/1972 DTAP/TDAP/TD VACCINES (1 - Tdap) 1973 PNEUMOCOCCAL VACCINE 50+ (1 of 1 - PCV) 2004 ZOSTER VACCINE (1 of 2) 2004 COVID-19 VACCINE (1 - 2023-2 5 season) 2024 DEPRESSION SCREENING 07/24/2024 INFLUENZA VACCINE (#1) 2025 Respiratory Syncytial Virus (RSV) Vaccine Pt: or over 60 yrs (1 - 1-dose 75+ series) 2029 HEPATITIS B VACCINE Aged Out No longe r eligible based on patient's age to complete this topic HIB VACCINE Aged Out No longer eligi ble based on patient's age to complete this topic HPV VACCINE Aged Out No longer eligi ble based on patient's age to complete this topic MENINGOCOCCAL (Group B) VACC INE SHARED DECISION-MAKING Aged Out No longer eligibl e based on patient's age to complete this topic MENINGOCOCCAL GROUPS A/C/Y/W VACCINE Aged Out No longer eligible b ased on patient's age to complete this topic Insurance [employer] * Guarantor: AGNIESZKA ROBLES Account Type Relation to Patient Date of Phone Billing Address Personal/Family [address] [place] [phone] [employer] SELF PAY NO INSURANCE Member Subscriber Plan / Payer (Ef fective for All Dates) Name:Agnieszka Robles Member ID:Not on file Relation to Subscriber:Not on file Name:AGNIESZKA ROBLES Subscriber ID:Not on file Address: [address] [place] [address] Payer ID:Not on file Group ID:Not on file Type:Self Pay Address: [place], [place] * Guarantor: AGNIESZKA ROBLES Account Type Relation to Patient Date of Phone Billing Address Personal/Family [address] [place], [place] [id number] [place] [address] MEDICARE SELF PAY NO INSURANCE Member Subscriber Plan / Payer (Ef fective for All Dates) Name:Agnieszka Robles Member ID:Not on file Relation to Subscriber:Not on file Name:AGNIESZKA ROBLES Subscriber ID:Not on file Address: [address] [place] [address] Payer ID:Not on file Group ID:Not on file Type:Self Pay Address: [place], [place] * Guarantor: AGNIESZKA ROBLES Account Type Relation to Patient Date of Phone Billing Address Personal/Family [address] [place], [place] [id number] [facility] MEDICARE SELF PAY NO INSURANCE Member Subscriber Plan / Payer (Ef fective for All Dates) Name:Agnieszka Robles Member ID:Not on file Relation to Subscriber:Not on file Name:AGNIESZKA ROBLES Subscriber ID:Not on file Address: [address] [place] [phone] Payer ID:Not on file Group ID:Not on file Type:Self Pay Address: [place], [place] Care Teams Developing Machine Operator Relationship Specialty Start Date End Date Kevin Velasquez MD [address] [address] PCP - General 11/07/17
--- OUTSIDE RECORDS SUMMARY | 2025-03-04 15:08 | XMS_ITS | Clinical Summary ---
Author Organization [facility] Address [address] [phone] Phone Care Team Providers Care Pharmacy Retail Support Specialist Name Role Phone Kevin Velasquez MD Primary Care Provider + Medications polyethylene glycol (MIRALAX) Powder Use entire bottle of 255 grams of miralax for Colon prep as directed by office. 255 g 08/14/2017 Active Social History Tobacco Use Types Packs/Day Years Used Date Smoking Tobacco: Never Assessed Comments Unknown Sex and Gender Information Value Date Recorded Sex Assigned at Not on file Legal Sex Female 9:36 PM CDT Gender Identity Not on file Sexual Orientation Not on file Plan of Treatment Health Maintenance Due Date Last Done Comments Hepatitis C Virus (HCV) Screening 1955 TdaP Immunization 1954 Cologuard 1999 Immunochemical Fecal Occult Blood 1999 Pneumococcal Immunization (5 0+ years) (1 of 1 - PCV) 2004 Zoster Immunization (1 of 2) 2004 Colonoscopy 08/24/2022 08/24/2017 Colorectal Cancer Screening 08/24/2022 SARS-COV-2 Immunization (1 - 2023- season) 2024 Influenza Immunization (#1) 2025 Respiratory Syncytial Virus (RSV) Immunization (Adult) (1 - 1-dose 75+ series) 2029 Hepatitis B Immunization Aged Out No longer eligible based on patient's age to complete this topic Human Papillomavirus (HPV) Immunization Aged Out No longer eligible b ased on patient's age to complete this topic Meningococcal Immunization (ACWY) Aged Out No longer eligible based on patient's age to complete this topic Rotavirus Immunization Aged Out No lo nger eligible based on patient's age to complete this topic Procedures Procedure Name Priority Date/Time Associated Diagnosis Comments COLONOSCOPY Routine 08/24/2017 from Last 3 Months or Most Recently Relevant to Health Maintenance Results * COLONOSCOPY (08/24/2017) Aleks Palma DO PROCEDURE/MINOR SURGICAL ORDERA BLES Final Result from Last 3 Months or Most Recently Relevant to Health Maintenance Care Teams Pharmacy Retail Support Specialist Relationship Specialty Start Date End Date Kevin Velasquez MD PCP - General Family Medicine 06/07/17
--- OUTSIDE RECORDS SUMMARY | 2025-03-04 15:08 | XMS_ITS | Clinical Summary ---
Author Organization [facility] Address [address] [place] [address] Care Team Providers Care Label Coder Name Role Phone Kevin Velasquez MD Primary Care Provider +1- [phone] Allergies Active Allergy Reactions Criticality Noted Date Comments Cefprozil Other (see comment) 01/21/2021 Geronimo very warm Vancomycin Other (see comment) 01/21/2021 Geronimo very warm Medications metoprolol tartrate 25 MG tablet Take 25 mg by mouth 2 (two) times daily. Active sotalol 120 MG tablet Take 120 mg by mouth 2 (two) times daily. Active warfarin 2.5 MG tablet Take 2.5 mg by mouth daily. Active furosemide 40 MG tablet Take 40 mg by mouth daily. Active potassium chloride CR 10 MEQ tablet Take 10 mEq by mouth daily. Active levothyroxine 50 MCG tablet Take 50 mcg by mouth every other day. Active levothyroxine 75 MCG tablet Take 75 mcg by mouth every other day. Active zolpidem 5 MG tablet Take 5 mg by mouth nightly as needed for Sleep. Active gabapentin 400 MG capsule Take 100 mg by mouth 4 (four) times daily. Active Fluticasone-Ume clidin-Vilant (TRELEGY) 100-62.5-25 MCG/INH AEROSOL POWDER, BREATH ACTIVATED Inhale 1 puff into the lungs daily. Active aspirin EC (ASPIRIN EC) 81 MG tablet Take 81 mg by mouth daily. Active multi vitamin/mineral s tablet Take 1 tablet by mouth daily. Active vitamin B-12 (VITAMIN B12) 100 MCG tablet Take 50 mcg by mouth daily. Active calcium carbonate 1250 (500 Ca) MG tablet Take 1 tablet by mouth daily. Active glucosamine-cho ndroitin 500-400 MG Cap Take 1 capsule by mouth daily. Active multiple vitamins-minera ls (OCUVITE ADULT 50+) Cap Take 1 capsule by mouth daily. Active pantoprazole EC 40 MG tablet Take 40 mg by mouth daily as needed. Active Active Problems No known active problems Immunizations Immunization Administration Dates Next Due Zoster (Zostavax) 22491 Unt/0.65Ml 10/06/2014 Social History Tobacco Use Types Packs/Day Years Used Date Smoking Tobacco: Never Smokeless Tobacco: Current Snuff Alcohol Use Standard Drinks/Week Comments Never 0 (1 standard drink = 0.6 oz pur e alcohol) AUDIT-C Answer Date Recorded Q1: How often do you have a drink containing alc ohol? Never 01/21/2021 Average Number of Drinks Not on file 021 Frequency of Binge Drinking Not on file 07/2020 Comments No Sex and Gender Information Value Date Recorded Sex Assigned at Not on file Legal Sex Female 11:33 AM CDT Gender Identity Not on file Sexual Orientation Not on file Last Filed Vital Signs Vital Sign Reading Time Taken Comments Blood Pressure 129/61 02/01/2021 7:58 AM CDT Pulse 70 02/01/2021 7:58 AM CDT Temperature 37.2 C (98.9 F) 02/01/2021 6:25 AM CDT Respiratory Rate 16 02/01/2021 7:58 AM CDT Oxygen Saturation 93% 02/01/2021 7:58 AM CDT Inhaled Oxygen Concentration - - Weight 68 kg (150 lb) 01/21/2021 1:53 PM CDT Height 160 cm (5' 3) 01/21/2021 1:53 PM CDT Body Mass Index 26.57 01/21/2021 1:53 PM CDT Plan of Treatment Health Maintenance Due Date Last Done Comments Colorectal Cancer Screening Colonoscopy (10 Years) 1954 Hepatitis C 1972 DTaP, Tdap and Td Vaccines ( 1 - Tdap) 1973 Mammogram Screening 1994 Pneumococcal Vaccine: 50+ Years (1 of 1 - PCV) 2004 Zoster Vaccines (2 of 3) 12/01/2014 10/06/2014 Annual Medicare Wellness Visit 2019 Dexa Scan (General) 2019 COVID-19 Vaccine (3 2023-2 5 season) 2024 09/26/2020, 09/03/2020 RSV Immunization or 60+ Years (1 - 1-dose 75+ series) 2029 Meningococcal B Vaccine Aged Out No l onger eligible based on patient's age to complete this topic Meningococcal Vaccine Aged Out No lisa jeny eligible based on patient's age to complete this topic RSV Immunizations Under 20 Months Aged Out No longer eligible b ased on patient's age to complete this topic Medical Devices Implanted Type Area Couturiere Device Identifier Shelf Expiration Date Model / Serial / Lot Iol Tecnis Multifocal Symphony [id number] - [id number] Implanted:Qty: 1 on 02/01/2021 by Ramiro Davenport MD at [facility] Lens Right: Eye BOONE 06/10/2021 [id number] / [id number] / Insurance [employer] Care Teams Label Coder Relationship Specialty Start Date End Date Kevin Velasquez MD [address] [place] [address] PCP - General FAMILY PRACTICE 02/01/21
== END 2025-03-04 14:39 | disposition home or self-care (01) ==
PROVIDERS: PCP Family Medicine Adolescent Medicine; Visit Provider Nurse Practitioner Family
DX: M25.551 Pain in right hip (principal); M25.552 Pain in left hip
CPT/HCPCS: 73521

== ENCOUNTER 2025-03-17 07:57 | Outpatient (CLI) | payer OTHER, SELFPAY ==
--- OUTSIDE RECORDS SUMMARY | 2025-03-17 08:07 | XMS_ITS | Encounter Summary ---
Author Organization [facility] Healthcare Address [address] [place] [address] Care Team Providers Care Senior Wind Turbine Technician Name Role Phone Kevin Velasquez MD Primary Care Prov ider Encounter Details Date Type Department Care Team (Late st Contact Info) Description 10/09/2024 [place] [facility] [place] [address] [place] [address] Scanning, Provider Social History Tobacco Use Types Packs/Day Years Used Date Smoking Tobacco: Never Smokeless Tobacco: Never Alcohol Use Standard Drinks/Week Comments No 0 (1 standard drink = 0.6 oz pur e alcohol) Comments Unknown Sex and Gender Information Value Date Recorded Sex Assigned at Not on file Legal Sex Female 8:50 PM AEROSPACE ENGINEER OFFICER ARMAMENT Gender Identity Not on file Sexual Orientation Not on file documented as of this encounter Plan of Treatment Not on file documented as of this encounter Procedures Procedure Name Priority Date/Time Associated Diagnosis Comments SCAN - LABS 10/09/2024 documented in this encounter Results * SCAN - LABS (10/09/2024) us Provider Scanning Final Result documented in this encounter Visit Diagnoses Not on filedocumented in this encounter Care Teams Senior Wind Turbine Technician Relationship Specialty Start Date End Date Kevin Velasquez MD [address] [place] [address] PCP - General 08/08/21 documented as of this encounter
--- OUTSIDE RECORDS SUMMARY | 2025-03-17 08:07 | XMS_ITS | Encounter Summary ---
Author Organization [facility] Healthcare Address [address] [place] [address] Care Team Providers Care Professor Of Philosophy Name Role Phone Kevin Velasquez MD Primary Care Prov ider Encounter Details Date Type Department Care Team (Late st Contact Info) Description 09/13/[address] [facility] [place] [address] [place] [address] Scanning, Provider Social History Tobacco Use Types Packs/Day Years Used Date Smoking Tobacco: Never Smokeless Tobacco: Never Alcohol Use Standard Drinks/Week Comments No 0 (1 standard drink = 0.6 oz pur e alcohol) Comments Unknown Sex and Gender Information Value Date Recorded Sex Assigned at Not on file Legal Sex Female 8:50 PM TEAR DOWN WORKER Gender Identity Not on file Sexual Orientation Not on file documented as of this encounter Plan of Treatment Not on file documented as of this encounter Procedures Procedure Name Priority Date/Time Associated Diagnosis Comments SCAN - LABS 09/13/2024 documented in this encounter Results * SCAN - LABS (09/13/2024) us Provider Scanning Final Result documented in this encounter Visit Diagnoses Not on filedocumented in this encounter Care Teams Professor Of Philosophy Relationship Specialty Start Date End Date Kevin Velasquez MD [address] [place] [address] PCP - General 08/08/21 documented as of this encounter
--- OUTSIDE RECORDS SUMMARY | 2025-03-17 08:07 | XMS_ITS | Encounter Summary ---
Author Organization [facility] Healthcare Address [address] [place] [address] Care Team Providers Care Web Search Evaluator Name Role Phone Kevin Velasquez MD Primary Care Prov ider Encounter Details Date Type Department Care Team (Late st Contact Info) Description 09/07/2024 Orders Only [facility] [place] Health Information Management [address] [place] [address] Scanning, Provider Social History Tobacco Use Types Packs/Day Years Used Date Smoking Tobacco: Never Smokeless Tobacco: Never Alcohol Use Standard Drinks/Week Comments No 0 (1 standard drink = 0.6 oz pur e alcohol) Comments Unknown Sex and Gender Information Value Date Recorded Sex Assigned at Not on file Legal Sex Female 8:50 PM ENAMELER Gender Identity Not on file Sexual Orientation Not on file documented as of this encounter Plan of Treatment Not on file documented as of this encounter Procedures Procedure Name Priority Date/Time Associated Diagnosis Comments SCAN - LABS 09/07/2024 documented in this encounter Results * SCAN - LABS (09/07/2024) us Provider Scanning Final Result documented in this encounter Visit Diagnoses Not on filedocumented in this encounter Care Teams Web Search Evaluator Relationship Specialty Start Date End Date Kevin Velasquez MD [address] [place] [address] PCP - General 08/08/21 documented as of this encounter
--- OUTSIDE RECORDS SUMMARY | 2025-03-17 08:07 | XMS_ITS | Encounter Summary ---
Author Organization [facility] Healthcare Address [address] [place] [address] Care Team Providers Care Vaccine Specialist Name Role Phone Kevin Velasquez MD Primary Care Prov ider Encounter Details Date Type Department Care Team (Late st Contact Info) Description 06/24/2024 Orders Only [facility] [place] Health Information Management [address] [place] [address] Scanning, Provider Social History Tobacco Use Types Packs/Day Years Used Date Smoking Tobacco: Never Smokeless Tobacco: Never Alcohol Use Standard Drinks/Week Comments No 0 (1 standard drink = 0.6 oz pur e alcohol) Comments Unknown Sex and Gender Information Value Date Recorded Sex Assigned at Not on file Legal Sex Female 8:50 PM ADVERTISING SALES ASSOCIATE Gender Identity Not on file Sexual Orientation Not on file documented as of this encounter Plan of Treatment Not on file documented as of this encounter Procedures Procedure Name Priority Date/Time Associated Diagnosis Comments SCAN - LABS 06/24/2024 documented in this encounter Results * SCAN - LABS (06/24/2024) us Provider Scanning Final Result documented in this encounter Visit Diagnoses Not on filedocumented in this encounter Care Teams Vaccine Specialist Relationship Specialty Start Date End Date Kevin Velasquez MD [address] [place] [address] PCP - General 08/08/21 documented as of this encounter
--- OUTSIDE RECORDS SUMMARY | 2025-03-17 08:07 | XMS_ITS | Encounter Summary ---
Author Organization [facility] Healthcare Address [address] [place] [address] Care Team Providers Care Maturity Checker Name Role Phone Kevin Velasquez MD Primary Care Prov ider Encounter Details Date Type Department Care Team (Late st Contact Info) Description 05/31/2024 Orders Only [facility] [place] Health Information Management [address] [place] [address] Scanning, Provider Social History Tobacco Use Types Packs/Day Years Used Date Smoking Tobacco: Never Smokeless Tobacco: Never Alcohol Use Standard Drinks/Week Comments No 0 (1 standard drink = 0.6 oz pur e alcohol) Comments Unknown Sex and Gender Information Value Date Recorded Sex Assigned at Not on file Legal Sex Female 8:50 PM CALL CENTER ASSISTANT Gender Identity Not on file Sexual Orientation Not on file documented as of this encounter Plan of Treatment Not on file documented as of this encounter Procedures Procedure Name Priority Date/Time Associated Diagnosis Comments SCAN - LABS 05/31/2024 documented in this encounter Results * SCAN - LABS (05/31/2024) us Provider Scanning Final Result documented in this encounter Visit Diagnoses Not on filedocumented in this encounter Care Teams Maturity Checker Relationship Specialty Start Date End Date Kevin Velasquez MD [address] [place] [address] PCP - General 08/08/21 documented as of this encounter
--- OUTSIDE RECORDS SUMMARY | 2025-03-17 08:07 | XMS_ITS | Encounter Summary ---
Author Organization [facility] Healthcare Address [address] [place] [address] Care Team Providers Care Hand Ironer Name Role Phone Kevin Velasquez MD Primary Care Prov ider Encounter Details Date Type Department Care Team (Late st Contact Info) Description 10/29/2024 Orders Only [facility] [place] Health Information Management [address] [place] [phone] Scanning, Provider Social History Tobacco Use Types Packs/Day Years Used Date Smoking Tobacco: Never Smokeless Tobacco: Never Alcohol Use Standard Drinks/Week Comments No 0 (1 standard drink = 0.6 oz pur e alcohol) Comments Unknown Sex and Gender Information Value Date Recorded Sex Assigned at Not on file Legal Sex Female 8:50 PM BARREL RAISER Gender Identity Not on file Sexual Orientation Not on file documented as of this encounter Plan of Treatment Not on file documented as of this encounter Procedures Procedure Name Priority Date/Time Associated Diagnosis Comments SCAN - LABS 10/29/2024 9:29 PM CDT documented in this encounter Results * SCAN - LABS (10/29/2024 9:29 PM CDT) us Provider Scanning Final Result documented in this encounter Visit Diagnoses Not on filedocumented in this encounter Care Teams Hand Ironer Relationship Specialty Start Date End Date Kevin Velasquez MD [address] [place] [address] PCP - General 08/08/21 documented as of this encounter
--- OUTSIDE RECORDS SUMMARY | 2025-03-17 08:07 | XMS_ITS | Encounter Summary ---
Author Organization [facility] Healthcare Address [address] [place] [address] Care Team Providers Care Supervisor Poultry Processing Name Role Phone Kevin Velasquez MD Primary Care Prov ider Encounter Details Date Type Department Care Team (Late st Contact Info) Description 03/04/2024 Orders Only [facility] [place] Health Information Management [address] [place] [address] Scanning, Provider Social History Tobacco Use Types Packs/Day Years Used Date Smoking Tobacco: Never Smokeless Tobacco: Never Alcohol Use Standard Drinks/Week Comments No 0 (1 standard drink = 0.6 oz pur e alcohol) Comments Unknown Sex and Gender Information Value Date Recorded Sex Assigned at Not on file Legal Sex Female 8:50 PM FOREST FIRE PREVENTION SPECIALIST Gender Identity Not on file Sexual Orientation Not on file documented as of this encounter Plan of Treatment Not on file documented as of this encounter Procedures Procedure Name Priority Date/Time Associated Diagnosis Comments SCAN - LABS 03/04/2024 documented in this encounter Results * SCAN - LABS (03/04/2024) us Provider Scanning Final Result documented in this encounter Visit Diagnoses Not on filedocumented in this encounter Care Teams Supervisor Poultry Processing Relationship Specialty Start Date End Date Kevin Velasquez MD [address] [place] [address] PCP - General 08/08/21 documented as of this encounter
--- OUTSIDE RECORDS SUMMARY | 2025-03-17 08:07 | XMS_ITS | Encounter Summary ---
Author Organization [facility] Address [address] [facility] [address] [place] [address] Care Team Providers Care Die Repair Machinist Name Role Phone Kevin Velasquez MD Primary Care Prov ider Kevin Velasquez MD Primary Care Prov ider Kevin Velasquez MD Primary Care Prov ider Encounter Details Date Type Department Care Team (Late st Contact Info) Description 08/01/2016 Orders Only [facility] Provider, MD El [address] [place] [address] Social History Tobacco Use Types Packs/Day Years Used Date Smoking Tobacco: Never Alcohol Use Standard Drinks/Week Comments No 0 (1 standard drink = 0.6 oz pur e alcohol) Comments Unknown Sex and Gender Information Value Date Recorded Sex Assigned at Not on file Legal Sex Female 8:50 PM CAN CUTTER Gender Identity Not on file Sexual Orientation Not on file documented as of this encounter Plan of Treatment Not on file documented as of this encounter Procedures Procedure Name Priority Date/Time Associated Diagnosis Comments CARDIOLOGY REPORT 08/01/2016 documented in this encounter Results * CARDIOLOGY REPORT (08/01/2016) Anatomical Region Laterality Modality Other Narrative 08/01/2016 Ordered by an unspecified provider. us Historical Provider [facility] SHAHRZAD NEWBY Final Result documented in this encounter Visit Diagnoses Not on filedocumented in this encounter Care Teams Die Repair Machinist Relationship Specialty Start Date End Date Kevin Velasquez MD [address] [place] [address] PCP - General 10/21/16 08/07/21 Kevin Velasquez MD [address] [place] [address] PCP - General 04/30/13 10/20/16 Kevin Velasquez MD [address] [place] [address] PCP - General 08/08/21 documented as of this encounter
--- OUTSIDE RECORDS SUMMARY | 2025-03-17 08:07 | XMS_ITS | Encounter Summary ---
Author Organization [facility] Healthcare Address [address] [place] [address] Care Team Providers Care Pantry Attendant Name Role Phone Kevin Velasquez MD Primary Care Prov ider Encounter Details Date Type Department Care Team (Late st Contact Info) Description 12/09/2022 Orders Only [facility] [place] Health Information Management [address] [place] [phone] Scanning, Provider Social History Tobacco Use Types Packs/Day Years Used Date Smoking Tobacco: Never Smokeless Tobacco: Never Alcohol Use Standard Drinks/Week Comments No 0 (1 standard drink = 0.6 oz pur e alcohol) Comments Unknown Sex and Gender Information Value Date Recorded Sex Assigned at Not on file Legal Sex Female 8:50 PM MEDICINAL PLANT PICKER Gender Identity Not on file Sexual Orientation Not on file documented as of this encounter Plan of Treatment Not on file documented as of this encounter Procedures Procedure Name Priority Date/Time Associated Diagnosis Comments SCAN - LABS 12/09/2022 documented in this encounter Results * SCAN - LABS (12/09/2022) us Provider Scanning Final Result documented in this encounter Visit Diagnoses Not on filedocumented in this encounter Care Teams Pantry Attendant Relationship Specialty Start Date End Date Kevin Velasquez MD [address] [place] [address] PCP - General 08/08/21 documented as of this encounter
--- OUTSIDE RECORDS SUMMARY | 2025-03-17 08:07 | XMS_ITS | Clinical Summary ---
Author Organization [facility] [employer] Address [address] [facility] [place] [address] Care Team Providers Care Financial Developer Name Role Phone Kevin Velasquez MD Primary Care Provider + Source Comments [facility],non-owned Affiliates and Associated Physician Practices is amultiple site organization consisting of ambulatory clinics and hospital sitesin [place], [place], [place] and [place]. This disclosure is being madepursuant to the Care Everywhere program and may not contain all information available regarding this patient. Last updated 18.[facility] [employer] Social History Tobacco Use Types Packs/Day Years Used Date Smoking Tobacco: Never Assessed Comments Unknown Sex and Gender Information Value Date Recorded Sex Assigned at Not on file Legal Sex Female 6:18 AM ASSISTANT PROFESSOR SURGICAL TECHNOLOGY Gender Identity Not on file Sexual Orientation [...] Patient Date of Phone Billing Address Personal/Family [address] [place] [phone] [employer] MED[employer]ARE SELF PAY NO INSURANCE Member Subscriber Plan / Payer (Ef fective for All Dates) Name:Agnieszka Robles Member ID:Not on file Relation to Subscriber:Not on file Name:AGNIESZKA ROBLES Subscriber ID:Not on file Address: [address] [place] [address] Payer ID:Not on file Group ID:Not on file Type:Self Pay Address: [place], [place] * Guarantor: AGNIESZKA ROBLES Account Type Relation to Patient Date of Phone Billing Address Personal/Family [address] [place], [place] [address] [place] [address] MEDICARE SELF PAY NO INSURANCE Member Subscriber Plan / Payer (Ef fective for All Dates) Name:Agnieszka Robles Member ID:Not on file Relation to Subscriber:Not on file Name:AGNIESZKA ROBLES Subscriber ID:Not on file Address: [address] [place] [address] Payer ID:Not on file Group ID:Not on file Type:Self Pay Address: [place], [place] * Guarantor: AGNIESZKA ROBLES Account Type Relation to Patient Date of Phone Billing Address Personal/Family [address] [place], [place] [phone] [facility] MEDICARE SELF PAY NO INSURANCE Member Subscriber Plan / Payer (Ef fective for All Dates) Name:Agnieszka Robles Member ID:Not on file Relation to Subscriber:Not on file Name:AGNIESZKA ROBLES Subscriber ID:Not on file Address: [address] [place] [phone] Payer ID:Not on file Group ID:Not on file Type:Self Pay Address: [place], [place] Care Teams Financial Developer Relationship Specialty Start Date End Date Kevin Velasquez MD [address] [address] PCP - General 11/07/17
--- OUTSIDE RECORDS SUMMARY | 2025-03-17 08:07 | XMS_ITS | Encounter Summary ---
Author Organization [facility] Healthcare Address [address] [place] [address] Care Team Providers Care Pest Control Service Representative Name Role Phone Kevin Velasquez MD Primary Care Prov ider Encounter Details Date Type Department Care Team (Late st Contact Info) Description 08/04/2024 Orders Only [facility] [place] Health Information Management [address] [place] [address] Scanning, Provider Social History Tobacco Use Types Packs/Day Years Used Date Smoking Tobacco: Never Smokeless Tobacco: Never Alcohol Use Standard Drinks/Week Comments No 0 (1 standard drink = 0.6 oz pur e alcohol) Comments Unknown Sex and Gender Information Value Date Recorded Sex Assigned at Not on file Legal Sex Female 8:50 PM MAORI PHYSIOTHERAPIST Gender Identity Not on file Sexual Orientation Not on file documented as of this encounter Plan of Treatment Not on file documented as of this encounter Procedures Procedure Name Priority Date/Time Associated Diagnosis Comments SCAN - LABS 08/04/2024 documented in this encounter Results * SCAN - LABS (08/04/2024) us Provider Scanning Final Result documented in this encounter Visit Diagnoses Not on filedocumented in this encounter Care Teams Pest Control Service Representative Relationship Specialty Start Date End Date Kevin Velasquez MD [address] [place] [address] PCP - General 08/08/21 documented as of this encounter
--- OUTSIDE RECORDS SUMMARY | 2025-03-17 08:07 | XMS_ITS | Clinical Summary ---
Author Organization [facility] Address [address] [place] [address] Care Team Providers Care Station Engineer Main Line Name Role Phone Kevin Velasquez MD Primary Care Provider +1- [phone] Allergies Active Allergy Reactions Criticality Noted Date Comments Cefprozil Other (see comment) 01/21/2021 Leroy very warm Vancomycin Other (see comment) 01/21/2021 Leroy very warm Medications metoprolol tartrate 25 MG [...] Immunization Administration Dates Next Due Zoster (Zostavax) [address] Unt/0.65Ml 10/06/2014 Social History Tobacco Use Types [...] this topic Medical Devices Implanted Type Area Refractory Specialist Device Identifier Shelf Expiration Date Model / Serial / Lot Iol Tecnis Multifocal Symphony [id number] - [id number] Implanted:Qty: 1 on 02/01/2021 by Ramiro Davenport MD at [facility] Lens Right: Eye BOONE 06/10/2021 [id number] / [id number] / Insurance [employer] Care Teams Station Engineer Main Line Relationship Specialty Start Date End Date Kevin Velasquez MD [address] [place] [address] PCP - General FAMILY PRACTICE 02/01/21
--- OUTSIDE RECORDS SUMMARY | 2025-03-17 08:07 | XMS_ITS | Encounter Summary ---
Author Organization [facility] Healthcare Address [address] [place] [address] Care Team Providers Care Registered Health Nurse Name Role Phone Kevin Velasquez MD Primary Care Prov ider Encounter Details Date Type Department Care Team (Late st Contact Info) Description 08/29/2024 [place] [facility] [place] [address] [place] [id number] Scanning, Provider Social History Tobacco Use Types Packs/Day Years Used Date Smoking Tobacco: Never Smokeless Tobacco: Never Alcohol Use Standard Drinks/Week Comments No 0 (1 standard drink = 0.6 oz pur e alcohol) Comments Unknown Sex and Gender Information Value Date Recorded Sex Assigned at Not on file 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[employer] Gender Identity Not on file Sexual Orientation Not on file documented as of this encounter Plan of Treatment Not on file documented as of this encounter Procedures Procedure Name Priority Date/Time Associated Diagnosis Comments SCAN - LABS 08/29/2024 documented in this encounter Results * SCAN - LABS (08/29/2024) us Provider Scanning Final Result documented in this encounter Visit Diagnoses Not on filedocumented in this encounter Care Teams Registered Health Nurse Relationship Specialty Start Date End Date Kevin Velasquez MD [address] [place] [address] PCP - General 08/08/21 documented as of this encounter
--- OUTSIDE RECORDS SUMMARY | 2025-03-17 08:07 | XMS_ITS | Clinical Summary ---
Author Organization [facility] Address [address] [id number] Phone Care Team Providers Care Operations Consultant Name Role Phone Kevin Velasquez MD Primary [...] Cancer Screening 08/24/2022 SARS-COV-2 Immunization (1 - 2023-25 season) 2024 Influenza Immunization (#1) 2025 Respiratory [...] Recently Relevant to Health Maintenance Care Teams Operations Consultant Relationship Specialty Start Date End Date Kevin Velasquez MD PCP - General Family Medicine 06/07/17
--- OUTSIDE RECORDS SUMMARY | 2025-03-17 08:07 | XMS_ITS | Encounter Summary ---
Author Organization [facility] Healthcare Address [address] [place] [address] Care Team Providers Care City Attorney Name Role Phone Kevin Velasquez MD Primary Care Prov ider Encounter Details Date Type Department Care Team (Late st Contact Info) Description 08/15/2024 Orders Only [facility] [place] Health Information Management [address] [place] [id number] Scanning, Provider Social History Tobacco Use Types Packs/Day Years Used Date Smoking Tobacco: Never Smokeless Tobacco: Never Alcohol Use Standard Drinks/Week Comments No 0 (1 standard drink = 0.6 oz pur e alcohol) Comments Unknown Sex and Gender Information Value Date Recorded Sex Assigned at Not on file Legal 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 Female 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
--- OUTSIDE RECORDS SUMMARY | 2025-03-17 08:07 | XMS_ITS | Encounter Summary ---
Author Organization [facility] Healthcare Address [address] [place] [address] Care Team Providers Care Banquet Food Server Name Role Phone Kevin Velasquez MD Primary Care Prov ider Encounter Details Date Type Department Care Team (Late st Contact Info) Description 12/06/2024 [place] [facility] [place] [address] [place] [address] Scanning, Provider Social History Tobacco Use Types Packs/Day Years Used Date Smoking Tobacco: Never Smokeless Tobacco: Never Alcohol Use Standard Drinks/Week Comments No 0 (1 standard drink = 0.6 oz pur e alcohol) Comments Unknown Sex and Gender Information Value Date Recorded Sex Assigned at Not on file 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 Gender Identity Not on file Sexual Orientation Not on file documented as of this encounter Plan of Treatment Not on file documented as of this encounter Procedures Procedure Name Priority Date/Time Associated Diagnosis Comments SCAN - LABS 12/06/2024 documented in this encounter Results * SCAN - LABS (12/06/2024) us Provider Scanning Final Result documented in this encounter Visit Diagnoses Not on filedocumented in this encounter Care Teams Banquet Food Server Relationship Specialty Start Date End Date Kevin Velasquez MD [address] [place] [address] PCP - General 08/08/21 documented as of this encounter
--- OUTSIDE RECORDS SUMMARY | 2025-03-17 08:07 | XMS_ITS | Encounter Summary ---
Author Organization [facility] Address [address] [place] [address] Care Team Providers Care Can Tester Name Role Phone Kevin Velasquez MD Primary Care Prov ider Kevin Velasquez MD Primary Care Prov ider Encounter Details Date Type Department Care Team (Late st Contact Info) Description 03/28/2018 Orders Only [facility] [place] Health Information Management [address] [place] [address] Scanning, Provider Social History Tobacco Use Types Packs/Day Years Used Date Smoking Tobacco: Never Smokeless Tobacco: Never Alcohol Use Standard Drinks/Week Comments No 0 (1 standard drink = 0.6 oz pur e alcohol) Comments Unknown Sex and Gender Information Value Date Recorded Sex Assigned at Not on file 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 Gender Identity Not on file Sexual Orientation Not on file documented as of this encounter Plan of Treatment Not on file documented as of this encounter Procedures Procedure Name Priority Date/Time Associated Diagnosis Comments CARDIOLOGY DOCUMENT SCAN 03/28/2018 documented in this encounter Results * Cardiology Document Scan (03/28/2018) Anatomical Region Laterality Modality Other us Provider Scanning CV CARDIAC SERVICES PROCEDURES Final Result documented in this encounter Visit Diagnoses Not on filedocumented in this encounter Care Teams Can Tester Relationship Specialty Start Date End Date Kevin Velasquez MD [address] [place] [address] PCP - General 10/21/16 08/07/21 Kevin Velasquez MD [address] [place] [address] PCP - General 08/08/21 documented as of this encounter
--- OUTSIDE RECORDS SUMMARY | 2025-03-17 08:07 | XMS_ITS | Clinical Summary ---
Author Organization [facility] Address [address] [place] [address] Care Team Providers Care Metal Sander And Finisher Name Role Phone Kevin Velasquez MD Primary Care Prov ider Allergies Active Allergy Reactions Criticality Noted Date Comments Cefprozil Other (See comments) Low 01/21/2021 [place] very warm Celecoxib Pregabalin [place]of-[place]l-Loy Reductase Inhibitors Muscle pain,Joint pain Medium 03/06/2025 Vancomycin Other (See comments) Low 01/21/2021 [place] very warm Medications zolpidem (AMBIEN) 5 mg tablet take 1 tablet by oral route every day at bedtime 0 014 Active Additional Information Patient taking differently:5 mgoral Nightly PRN, sleep, Reported on 03/06/2025 albuterol HFA (PROAIR HFA) 90 mcg/actuation inhaler inhale 2 puff by inhalation route every 4 - 6 hours as needed 3 Inhaler 0 015 Active cyanocobalamin (vitamin B-12) 1,000 mcg tablet take 5 Tablet by Oral route once 0 0 015 Active potassium chloride ER (potassium chloride ER) 10 mEq CR tablet take 1 Tablet (10MEQ) by oral route every day with food 0 013 Active aspirin 81 mg tablet take 1 tablet (81MG) by oral route every day 0 Active multivitamin tablet tablet take 1 Tablet by oral route every day with food 0 Active levothyroxine (SYNTHROID, LEVOTHROID) 75 mcg tablet Other days of the week 2 Active levothyroxine (SYNTHROID, LEVOTHROID) 50 mcg tablet Take 1 tablet (50 mcg total) by mouth every other day 0 Active glucosamine-chondr oitin 500-400 mg tablet Take 1 tablet by mouth daily 12.5mg Active evening primrose oil (EVENING PRIMROSE ORAL) Take 1,000 mg by mouth 2 (two) times a day Active A-C-E-zinc ox-cupric ox-lutein (Ocular Vitamins) 7,160 unit- 113 mg-0.5 mg tablet Take by mouth Active dicyclomine (BENTYL) 10 mg capsule Active acetaminophen ER (TYLENOL) 650 mg 8 hr tablet Take 1 tablet (650 mg total) by mouth every 8 (eight) hours as needed for pain Active L. gasseri-B. bifidum-B 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 Take [facility] Active furosemide (LASIX) 40 mg tablet TAKE 1 TABLET BY MOUTH EVERY DAY 90 tablet Active Restasis 0.05 % ophthalmic emulsion Administer 0.5 drops into both eyes 2 (two) times a day Active pantoprazole DR (PROTONIX) 40 mg EC tablet Take 1 tablet (40 mg total) by mouth every morning Active calcium carbonate/vitamin D3 (CALCIUM 600 + D,3, ORAL) Take by mouth Calcium 600 mg +D 3 800 international units Total Calcium is 700 mg and Total Vitamin D is 3600 international units daily. Vitamin D Multi- 800+Caltrate 800+D3 2000 international units= 3600 international units Activ e cholecalciferol (VITAMIN D-3) 2000 unit capsule 1 capsule (2,000 Units total) Active spirometers and accessories ([facility] Neuro Q Brain health memory focus Gotu 250 mg, Turmeric 250 mg, Ginkgo 120 mg, Phosphatidylserine 100 mg Neuro coffee 100 mg Propolis 75 mg, Active estradioL (ESTRACE) 0.01 % (0.1 mg/gram) vaginal cream INSERT 1 GRAM VAGINALLY 3 TIMES A WEEK Active enoxaparin (LOVENOX) 80 mg/0.8 mL syringe Inject 0.8 mL (80 mg total) under the skin every 12 (twelve) hours Injection twice a day once INR <2.0 9.6 mL 1 Active nitroglycerin (NITROSTAT) 0.4 mg SL tabletIndications: Coronary artery disease of [place] artery of [place] heart with stable angina pectoris PLACE 1 TABLET UNDER THE TONGUE EVERY 5 MINUTES NEEDED FOR CHEST PAIN, MAY REPEAT DOSE EVERY 5 MINUTES FOR UP TO 3 DOSES TOTAL 75 tablet 2 Active meloxicam (MOBIC) 15 mg tablet Take 1 tablet (15 mg total) by mouth daily Active tretinoin (RETIN-A) 0.025 % cream Apply topically nightly Active zolpidem CR (AMBIEN CR) 6.25 mg CR tablet Take 1 tablet (6.25 mg total) by mouth nightly at bedtime Active magnesium oxide (MAG-OX) 400 mg (241.3 mg elemental magnesium) tabletIndications: hypomagnesemia Take 1 tablet (400 mg total) by mouth daily 30 tablet 024 2024 Active pen needle, diabetic (Comfort EZ Pen [place] [employer]) 33 gauge x 5/16 needleIndications: Age-related osteoporosis without current pathological fracture Use one daily with Tymlos injection. 100 each 3 Active ketoconazole (NIZORAL) 2 % cream Apply topically daily Active abaloparatide 80 mcg (3,120 mcg/1.56 mL) pen injectorIndication s:Age-related osteoporosis without current pathological fracture Inject 0.04 mL (80 mcg total) under the skin daily 1.56 mL Active Additional Information Patient not taking.Reported on 10/31/2024 abaloparatide 80 mcg (3,120 mcg/1.56 mL) pen injectorIndication s:Age-related osteoporosis without current pathological fracture Inject 0.04 mL (80 mcg total) under the skin daily 1.56 mL 11 Active Additional Information Patient not taking.Reported on 10/31/2024 pen needle, diabetic 32 gauge x needleIndications: Age-related osteoporosis without current pathological fracture Change daily with Forteo. 100 each Active pen needle, diabetic 31 gauge x 10/06 needleIndications: Age-related osteoporosis without current pathological fracture Use one needle daily with Tymlos pen. 100 each 1 024 Active empagliflozin (JARDIANCE) 10 mg tablet Take 1 tablet (10 mg total) by mouth daily 30 tablet 11 Active pitavastatin calcium (LIVALO) 1 mg tabletIndications: Chronic chest pain Take 1 tablet (1 mg total) by mouth daily 90 tablet 3 024 Active Additional Information Patient not taking.Reported on 03/06/2025 losartan (COZAAR) 25 mg tablet TAKE 1 TABLET (25 MG TOTAL) BY MOUTH DAILY. 90 tablet 3 024 2024 Active warfarin (COUMADIN) 2 mg tabletIndications: Mechanical Valve Thromboembolism Prophylaxis TAKE 1 TABLET BY MOUTH DAILY OR DIRECTED BY PHYSICIAN. 90 tablet 3 025 Active sotaloL (BETAPACE) 120 mg tablet TAKE 1 TABLET BY MOUTH TWICE A DAY 180 tablet 3 025 Active metoprolol tartrate (LOPRESSOR) 25 mg immediate release tablet TAKE 1 TABLET BY MOUTH TWICE A DAY 180 tablet 2 025 Active Active Problems Problem Noted Date Diagnosed Date Age-related osteoporosis wit hout current pathological fracture 11/08/2024 Chronic combined systolic and diastolic heart fa ilure 08/06/2024 Chronic chest pain 10/12/2023 Coronary artery disease of [place] artery of [place] heart with stable angina pectoris 06/09/2023 Hyperlipidemia LDL goal <100 10/21/2022 Left facial numbness 06/14/2022 Slurred speech 06/14/2022 Fracture of six ribs of left side, closed, initial encounter 08/09/2021 Acute traumatic pain 08/09/2021 Traumatic hemothorax, left, without open wound i nto thorax 08/09/2021 Contusion of left lung 08/08/2021 Chronic shortness of breath 03/10/2021 Chronic anticoagulation 03/10/2021 Assessment & Plan (08/24/2024 10:49 AM SHEET METAL WELDER): -Status post mitral valve replacement -remains compliant on Coumadin, denies any issues with bruising or bleeding VT (ventricular tachycardia) 06/07/2017 Assessment & Plan (08/24/2024 10:48 AM SHEET METAL WELDER): -EP study showed inducible VT, status post single-chamber ICD placement -Maintained on sotalol and metoprolol -No evidence of ventricular arrhythmias noted on device interrogation today -No medication changes were made today -She denies any palpitations, near or carmen syncope. Assessment & Plan (07/15/2020 7:11 PM SHEET METAL WELDER): Managed by Dr. Acosta with Betamarianna. She has an ICD as well. Assessment & Plan (01/09/2020 10:26 AM CDT): Quiescent on Betapace. Assessment & Plan (07/09/2019 10:44 AM SHEET METAL WELDER): Quiescent on sotalol. Assessment & Plan (02/20/2018 10:33 AM CDT): Quiescent on Betapace with ICD. Assessment & Plan (08/22/2017 6:52 PM SHEET METAL WELDER): Followed by Dr. Acosta. She has an ICD and is on sotalol. Assessment & Plan (06/07/2017 4:00 PM SHEET METAL WELDER): Impression 1. Ventricular tachycardia. Doing well on sotalol metoprolol. We will decrease metoprolol due to patient's complaints of tiredness, though I doubt this is the cause. If there is no improvement after few days of lower dose, I have asked patient to go back up to 50 mg b.i.d. 2. Dual-chamber ICD. Satisfactory function. 3. Encounter for therapeutic drug monitoring. Satisfactory EKG on sotalol. EKG today sinus rhythm acceptable QT mild IVCD 4. The mechanical mitral valve. Patient on Coumadin 5. Nonischemic cardiomyopathy. EF 52% at last assessment. Plan Continue sotalol 120 mg b.i.d. Decrease metoprolol 25 mg b.i.d.. If no improvement in fatigue then go back to 50 mg b.i.d. Encounter for monitoring sotalol therapy 017 Assessment & Plan (08/24/2024 10:50 AM SHEET METAL WELDER): -Remains compliant on sotalol for suppression of VT -EKG today does not demonstrate any changes that would prohibit the use of sotalol -while the patient remains on this medication she will require an EKG every 6 months History of mitral valve replacement with mechani rudy valve 01/31/2017 Assessment & Plan (12/15/2020 1:45 PM CDT): Mechanical mitral valve is functioning normally. She is chronically anticoagulated with Coumadin aiming for 2.5-3.5 INR. Assessment & Plan (07/15/2020 7:10 PM SHEET METAL WELDER): Mechanical mitral valve is functioning normally by echo. She is chronically anticoagulated. Assessment & Plan (01/09/2020 10:26 AM CDT): INRs have been typically in the therapeutic range. Mitral valve sounds normal on exam. I am not convinced that her neurologic symptoms are related to embolic events from her mitral valve as they are all in a similar neurologic distribution. Assessment & Plan (07/09/2019 10:44 AM SHEET METAL WELDER): Normal mitral valve function. She is chronically anticoagulated. Assessment & Plan (01/07/2019 12:02 PM CDT): Normal mitral valve function. She is chronically anticoagulated. Assessment & Plan (09/11/2018 11:28 AM SHEET METAL WELDER): Valve sounds normal on exam. Echo Doppler will give a look at this. Assessment & Plan (08/22/2017 6:50 PM SHEET METAL WELDER): Mitral valve is functioning normally by today's echo. She is chronically anticoagulated. Assessment & Plan (01/31/2017 1:47 PM CDT): Valve sounds normal on exam. Will obtain an echo in 6 months Nonischemic cardiomyopathy 01/31/2017 Assessment & Plan (12/15/2020 1:46 PM CDT): Cardiomyopathy has improved significantly with her most recent echo showing an EF of 50%. Treatment of her sleep apnea is most likely responsible for improvement. Assessment & Plan (07/15/2020 7:10 PM SHEET METAL WELDER): Echocardiogram today shows dramatic improvement in her ejection fraction, probably corresponding with treatment for her sleep apnea. Assessment & Plan (01/09/2020 10:26 AM CDT): It is possible the sleep apnea has contributed to her cardiomyopathy. Echocardiogram in six months. She was encouraged to use her CPAP all night. Assessment & Plan (07/09/2019 10:45 AM SHEET METAL WELDER): No evidence of congestive heart failure on current regimen. Cardiomyopathy is non ischemic, and she is undergoing evaluation for sleep apnea as a potential contributor. Assessment & Plan (01/07/2019 12:02 PM CDT): Nonischemic cardiomyopathy, by history very likely secondary to untreated sleep apnea. I recommended that she schedule another appointment with Dr. Burton, whom she has previously seen for this, to see what else might be considered. Assessment & Plan (09/11/2018 11:27 AM SHEET METAL WELDER): Increasing fatigue and shortness of breath. Will obtain echo Doppler. Assessment & Plan (02/20/2018 10:32 AM CDT): Cardiomyopathy is mild to moderate. Her fatigue and exertional dyspnea seem out of proportion to her ejection fraction. I do not detect any congestive heart failure on exam. No change was made in her medications. Assessment & Plan (08/22/2017 6:51 PM SHEET METAL WELDER): Nonischemic cardiomyopathy. Today's EF is 45%. She does not appear to be in congestive heart failure by exam or symptoms. Assessment & Plan (01/31/2017 1:48 PM CDT): Nonischemic cardiomyopathy with stable exertional dyspnea. There is no evidence of congestive heart failure on exam. No change in medication ICD (implantable cardioverter-defibrillator) in place 01/31/2017 Assessment & Plan (08/24/2024 10:52 AM SHEET METAL WELDER): -Status post single-chamber ICD placement -Recent echo moderate LV dysfunction with an EF of 40%. -Device interrogation today shows 0% RV pacing. 10-14.1 months to KOKO. No ventricular episodes noted -The patient's device was interrogated today and found to be functioning appropriately. No significant programming changes were made at this time. The patient will continue to be followed through the Ar[facility]hythmia center device clinic remotely and with in office device interrogations as needed. -EKG today demonstrates sinus rhythm -We will wait for the device to reach KOKO, and then plan for device generator change. Patient verbalized understanding. Assessment & Plan (01/09/2020 10:26 AM CDT): Followed through the arrhythmia Center. Assessment & Plan (07/09/2019 10:44 AM SHEET METAL WELDER): Up-to-date on checks; no VT Presence of single chamber a utomatic cardioverter/defibrillator (AICD) 01/30/2017 Overview (07/21/2021): STJ Ellipse VVI/ICD implanted on 03/16/15 for NICM/VT (inducible on EPS study)-Tien-Karla implant-Glenn Card. Warfarin for Valve Mitral valve regurgitation 01/06/2017 Assessment & Plan (02/20/2018 10:33 AM CDT): Mechanical mitral valve is functioning normally. Arthralgia of shoulder 10/05/2010 Atypical chest pain Multiple closed fractures of ribs of left side Resolved Problems Problem Noted Date Diagnosed Date Resolved Date Mitral valve replaced 01/06/20172016 Encounters Date Type Department Care Team Description 03/06/2025 10:15 AM CDT Office Visit [facility] Cardiology at [address] [place] [address] Anshul Elizabeth MD Coronary artery disease of [place] artery of [place] heart with stable angina pectoris (Primary Dx); Chronic combined systolic and diastolic heart failure (HCC); History of mitral valve replacement with mechanical valve; Nonischemic cardiomyopathy (HCC); VT (ventricular tachycardia); Chronic anticoagulation 03/03/2025 Anticoagulation Visit [facility]iology [address] [facility] [address] [place] [address] Petty Louis RN 03/02/2025 Orders Only [facility] Health Information Management [address] [place] [address] Scanning, Provider 02/25/2025 7:00 AM CDT Ancillary Procedure [facility]iology [address] [facility] [address] [place] [phone] NICM (nonischemic cardiomyopathy) (HCC); VT (ventricular tachycardia) (HCC) 02/20/2025 10:30 AM CDT Office Visit [facility] [address] [place] [address] [place] [phone] Yumiko Rae NP Cardiac arrhythmia, unspecified cardiac arrhythmia type (Primary Dx); ICD (implantable cardioverter-defibril lator) in place 02/20/2025 10:15 AM CDT Ancillary Procedure [facility] [address] [place] [address] [place] [phone] Automatic implantable cardiac defibrillator in situ (Primary Dx); ICD (implantable cardioverter-defibril lator) in place 02/17/2025 Telephone [facility] [address] [place] [address] [place] [phone] Stan Rice III, MD Insurance Referrals 02/10/2025 Anticoagulation Visit [facility] [address] [facility] [address] [place] [address] Raissa Booker RN 02/09/2025 Orders Only [facility] Health Information Management [address] [place] [address] Scanning, Provider 01/28/2025 Anticoagulation Visit [facility] Cardiology [address] [place] [address] Petty Louis, RN 01/28/[address] [facility] [address] [facility] Medical Office Building [address] [place] [phone] Christina Hylton MD 01/21/2025 Anticoagulation Visit [facility] Cardiology [address] [facility] [address] [place] [phone] Petty Louis, RN 01/20/2025 Anticoagulation Visit [facility] [address] [facility] [address] [place] [phone] Petty Louis, RN 01/06/2025 Anticoagulation Visit [facility]iology [address] [place] [address] [address] [place] [phone] Petty Louis, RN 01/05/2025 Orders Only [facility] Health Information Management [address] [place] [address] Scanning, Provider from Last 3 Months Immunizations Immunization Administration Dates Next Due Influenza, Unspecified 04/23/2021 Surgical History Surgery Date Site/Laterality Comments CARDIAC VALVE REPLACEMENT Valve Replacement OTHER SURGICAL HISTORY spur removed on toe COLONOSCOPY TOE SURGERY ingrown toe nail INSERT / REPLACE / REMOVE PACEMAKER HYSTERECTOMY REDUCTION MAMMAPLASTY Medical History Medical History Date Comments Hx Other Medical TIA Chronic obstructive pulmonary disease (HCC) COPD Cardiomyopathy Cataracts, bilateral Sleep apnea History of mitral valve replacement with mechani rudy valve 01/31/2017 Anticoagulated on Coumadin 03/10/2021 Family History Medical History Relation Name Comments Heart attack Father Myocardial Infa rction; Cause of : Myocardial Infarction/Myocardial Infarction; Dementia Mother Osteoporosis Other Scoliosis Sister 1 Cancer Sister 2 Broken bones Neg Hx Hip fracture Neg Hx Kyphosis Neg Hx Relation Name Status Comments Brother Alive Father (Age 55) Mother (Age 82) Other Sister 1 Alive Sister 2 (Age 36) Social History Tobacco Use Types Packs/Day Years Used Date Smoking Tobacco: Never Smokeless Tobacco: Never Tobacco Cessation:Counseling Given: Not Answered Alcohol Use Standard Drinks/Week Comments No 0 (1 standard drink = 0.6 oz pur e alcohol) Comments Unknown Sex and Gender Information Value Date Recorded Sex Assigned at Not on file Legal Sex Female 8:50 PM SHEET METAL WELDER Gender Identity Not on file Sexual Orientation Not on file Obstetrics History Last Filed Vital Signs Vital Sign Reading Time Taken Comments Blood Pressure 112/72 03/06/2025 10:25 AM CDT Pulse 73 03/06/2025 10:25 AM CDT Temperature 36.4 C (97.6 F) 12/09/2024 8:45 AM CDT Respiratory Rate 18 12/09/2024 8:45 AM CDT Oxygen Saturation 96% 03/06/2025 10:25 AM CDT Inhaled Oxygen Concentration - - Weight 64 kg (141 lb) 03/06/2025 10:25 AM CDT Height 157.5 cm (5' 2) 03/06/2025 10:25 AM CDT Body Mass Index 25.79 03/06/2025 10:25 AM CDT Plan of Treatment Health Maintenance Due Date Last Done Comments Breast Cancer Screening-Mammogram 1955 Colon Cancer Screening-Colonoscopy 1955 Depression Screening 1955 Hepatitis C Screening 1955 DTaP/Tdap/Td Vaccine (1 - Tdap) 1965 Hepatitis B Screening 1972 Pneumococcal vaccine 65+ (1 of 2 - PCV) 1973 Zoster Vaccine (2 of 3) 12/01/2014 10/06/2014 Well Visit 65+ 2019 Fall Risk Assessment 08/13/2022 08/13/2021 Influenza Vaccine (#1) 2025 04/23/2021 Osteoporosis Screening-Bone Density Scan 11/08/2026 11/08/2024, 04/09/2024, 03/28/2023, Additional history exists Medical Devices Implanted Type Area Milk Bottling Machine Operator Device Identifier Shelf Expiration Date Model / Serial / Lot Icd-03/16/2015 Implanted:03/16 (Quantity not on file) ICD Chest [employer] ELLIPSE / [id number] / Description:STJ Ellipse VVI/ ICD implanted on 03/16/15 for NICM/VT (inducible on EPS study)-[employer] implant-[employer]eves Card. Procedures Procedure Name Priority Date/Time Associated Diagnosis Comments SCAN - LABS 03/02/2025 PROTIME-INR Routine 03/02/2025 ECG 12-LEAD Routine 02/20/2025 11:12 AM CDT Cardiac arrhythmia, unspecified cardiac arrhythmia type DEVICE CHECK - IN OFFICE Routine 02/20/2025 10:04 AM CDT ICD (implantable cardioverter-defibr illator) in place SCAN - LABS 02/09/2025 PROTIME-INR Routine 02/09/2025 PROTIME-INR Routine 01/28/2025 PROTIME-INR Routine 01/21/2025 PROTIME-INR Routine 01/20/2025 SCAN - LABS 01/05/2025 PROTIME-INR Routine 01/05/2025 DEXA TBS AXIAL SKELETON BONE DENSITY 1 OR MORE SITES Schedule Routine, Read Routine (OP Routine) 11/08/2024 9:03 AM CDT Age-related osteoporosis without current pathological fracture from Last 3 Months or Most Recently Relevant to Health Maintenance Results * SCAN - LABS (03/02/2025) us Provider Scanning Final Result * (ABNORMAL) Protime-INR (03/02/2025) INR 2.40(A) 0.90 - 1.10 EXTERNAL LAB Blood us Historical Provider LAB BLOOD ORDERABLES Monica meng Result EXTERNAL LAB * ECG 12 lead (02/20/2025 11:12 AM CDT) Yumiko Rae MINE INSPECTOR ECG ORDERABLES Final Resu lt * DEVICE CHECK - IN OFFICE (02/20/2025 10:04 AM CDT) Anatomical Region Laterality Modality Other Narrative 02/24/2025 8:54 PM CDT Table formatting from the original result was not included. ICD CHECK (IN OFFICE) Patient ID: Chelsea Moreno is a 69 y.o. female. This patient received a Valadez ICD. They had a routine in office device interrogation on 02/20/25 Device implant indications: Nonischemic dilated cardiomyopathy, VT Interrogation of the patient's device demonstrates the following: Presenting EGM: V sensed @ 65 bpm Underlying Rhythm: As above Original Device Settings Right Ventricle Sensitivity (mV) Auto mV Pacing Outputs 3.25 V @ 1.5 ms Testing Measurements Right Ventricle Sensitivity (mV) 11.7 mV Impedence (Ohms) 700 ohms High Voltage Impedence 46 ohms Pace Threshold 3.0 V @ 1.5 ms Pacing % Less than 1 % Battery Status: 6.2 months to KOKO with Charge Time 8.6 seconds Episodes last 90 days/Comments: There were no treated ventricular arrhythmias noted on today's in office device interrogation. NORMAL DEVICE FUNCTION PROGRAMMED MEDICATIONS: Anti-coagulant(s): Coumadin, aspirin 81 mg daily Anti-arrhythmic(s): Lopressor 25 mg twice daily, sotalol 120 mg twice daily PLAN: 1) Valadez ICD evaluation. 2) Valadez remote transmission scheduled in 3 months. 3) Programming appropriate for device measurements Mehran Rubin RN Renetta Burch NP [facility] CARDIAC SERVICES PROCEDURE S Final Result * SCAN - LABS (02/09/2025) Provider Scanning Final Result * (ABNORMAL) Protime-INR (02/09/2025) INR 2.80(A) 0.90 - 1.10 EXTERNAL LAB Blood Historical Provider LAB BLOOD ORDERABLES Monica yusra Result EXTERNAL LAB * (ABNORMAL) Protime-INR (01/28/2025) INR 3.10(A) 0.90 - 1.10 EXTERNAL LAB Blood Result [facility] Provider MD LAB BLOOD ORDERABLES Edit ed Result - Final Performing Organization Address [facility] de Phone Number EXTERNAL LAB * (ABNORMAL) Protime-INR (01/21/2025) INR 2.60(A) 0.90 - 1.10 EXTERNAL LAB Blood Result [facility] Provider MD LAB BLOOD ORDERABLES Edit ed Result - Final Performing Organization Address [facility] Phone Number EXTERNAL LAB * (ABNORMAL) Protime-INR (01/20/2025) INR 1.80(A) 0.90 - 1.10 EXTERNAL LAB Blood Result [facility] Provider MD LAB BLOOD ORDERABLES Edit ed Result - Final Performing Organization Address [facility] Phone Number EXTERNAL LAB * SCAN - LABS (01/05/2025) Result [facility] Provider Scanning Final Result * (ABNORMAL) Protime-INR (01/05/2025) INR 3.90(A) 0.90 - 1.10 EXTERNAL LAB Blood Result [facility] Provider MD LAB BLOOD ORDERABLES Monica l Result Performing Organization Address [facility] de Phone Number EXTERNAL LAB * Dexa TBS Axial Skeleton Bone Density 1 or more sites (11/08/2024 9:03 AM CDT) Anatomical Region Laterality Modality Wrist, Body N/A Radiographic Cara ging Narrative 11/08/2024 2:29 PM CDT Patient Name: Chelsea Moreno Date of : 1955 Date of scan: 11/08/2024 Bone mineral density was performed on a [employer] Discovery Densitometer. Based on machine cross-calibration and precision studies the least significant changes of this densitometer is 0.024 g/cm2 at the spine, 0.020 g/cm2 at the total proximal femur, and 0.014g/cm2 at the forearm. HISTORY: This is a 69 y.o. postmenopausal female with a history of asthma, osteoporosis, rheumatoid arthritis, thyroid disease, and vitamin D deficiency. She reports that she has never smoked. She has never used smokeless tobacco. Currently on treatment with calcium, vitamin D, abaloparatide (Tymlos), anticoagulants, and thyroid hormone, previously treated with alendronate (Fosamax), risedronate (Actonel), ibandronate (Boniva), teriparatide (Forteo), and hormone replacement therapy, and current complaint of arm pain, back pain, neck pain, and leg pain. INDICATIONS: Menopause status, treatment monitoring, vitamin D deficiency, and history of osteoporosis. FINDINGS: BONE MINERAL DENSITY OF THE LUMBAR SPINE Bone Mineral Density (BMD) of the lumbar spine was measured from L1-L3 and the average density was calculated to be 0.843 gm/cm2. This corresponds to a T-score (standard deviations from the mean of young adults) of -1.6. When compared to the previous study of 04/09/2024 there has been a 0.029 gm/cm (3.5%) increase in bone density that is considered significant. BONE MINERAL DENSITY OF THE PROXIMAL FEMUR Bone Mineral Density (BMD) of the left hip total was found to be 0.902 gm/cm2. This corresponds to a T-score standard deviations from the mean of young adults of -0.3. Femoral neck is 0.694 gm/cm2 with a T-score (standard deviations from the mean of young adults) of -1.4. When compared to the previous study of 04/09/2024 there has been no significant changes in bone density. SUMMARY: Bone mineral density shows evidence of low bone mass at the lumbar spine and proximal femur and moderately increased fracture risk (Osteopenia). There has been a significant increase in bone density since previous measurement. The lumbar spine Trabecular Bone Score is 1.347 which suggests normal bone microarchitecture, compared to the general population. Final decisions regarding diagnostic or therapeutic recommendations should include BMD, TBS, additional clinical risk factors as well the clinical context of the patient. Please see attached TBS results for further details. L4 excluded from bone mineral density analysis of the lumbar spine due to bone density being more than 1 standard deviation discrepant relative to one adjacent vertebra. Clinical correlation is recommended. ADDITIONAL COMMENTS: Postmenopausal Women and Men Over 50: Diagnostic criteria: Osteoporosis: BMD at or below -2.5 T-score; Osteopenia (low bone mass): BMD between -1.0 and -2.5 T-score. If the patient has a history of a fragility fracture, a fracture that occurred with trauma equivalent to a fall from a standing position or less, then the diagnosis is osteoporosis regardless of bone density. The history and data sections of the bone mineral density scan were prepared by Modesta Burgos)([facility])who is accredited by the International Society of Clinical Densitometry. The overall patient assessment and scan interpretation were performed by Christina Hylton M.D. who is certified by the International Society of Clinical Densitometry. [id number] Christina Hylton MD IM DXA PROCEDURES Final Resu lt from Last 3 Months or Most Recently Relevant to Health Maintenance Insurance [facility] Advance Directives For more information, please contact: [phone] * Full Code (Latest Code Status on File) Date Activated Date Inactivated Comments 08/08/2021 9:39 PM 08/14/2021 5:59 PM Care Teams Metal Sander And Finisher Relationship Specialty Start Date End Date Kevin Velasquez MD [address] [place] [id number] PCP - General 08/08/21
--- OUTSIDE RECORDS SUMMARY | 2025-03-17 08:07 | XMS_ITS | Encounter Summary ---
Author Organization [facility] Healthcare Address [address] [place] [address] Care Team Providers Care Pollution Control Technician Name Role Phone Kevin Velasquez MD Primary Care Prov ider Encounter Details Date Type Department Care Team (Late st Contact Info) Description 03/17/2024 Orders Only [facility] Health Information Management [address] [place] [address] Scanning, Provider Social History Tobacco Use Types Packs/Day Years Used Date Smoking Tobacco: Never Smokeless Tobacco: Never Alcohol Use Standard Drinks/Week Comments No 0 (1 standard drink = 0.6 oz pur e alcohol) Comments Unknown Sex and Gender Information Value Date Recorded Sex Assigned at Not on file Legal Sex Female 8:50 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 Gender Identity Not on file Sexual Orientation Not on file documented as of this encounter Plan of Treatment Not on file documented as of this encounter Procedures Procedure Name Priority Date/Time Associated Diagnosis Comments SCAN - LABS 03/17/2024 documented in this encounter Results * SCAN - LABS (03/17/2024) us Provider Scanning Final Result documented in this encounter Visit Diagnoses Not on filedocumented in this encounter Care Teams Pollution Control Technician Relationship Specialty Start Date End Date Kevin Velasquez MD [address] [place] [address] PCP - General 08/08/21 documented as of this encounter
--- OUTSIDE RECORDS SUMMARY | 2025-03-17 08:07 | XMS_ITS | Encounter Summary ---
Author Organization [facility] Healthcare Address [address] [place] [address] Care Team Providers Care Automobile Bumper Straightener Name Role Phone Kevin Velasquez MD Primary Care Prov ider Encounter Details Date Type Department Care Team (Late st Contact Info) Description 05/11/2024 Orders Only [facility] Health Information Management [address] [place] [phone] Scanning, Provider Social History Tobacco Use Types Packs/Day Years Used Date Smoking Tobacco: Never Smokeless Tobacco: Never Alcohol Use Standard Drinks/Week Comments No 0 (1 standard drink = 0.6 oz pur e alcohol) Comments Unknown Sex and Gender Information Value Date Recorded Sex Assigned at Not on file Legal Sex Female 8:50 PM 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 CAPRIFIER Gender Identity Not on file Sexual Orientation Not on file documented as of this encounter Plan of Treatment Not on file documented as of this encounter Procedures Procedure Name Priority Date/Time Associated Diagnosis Comments SCAN - LABS 05/11/2024 documented in this encounter Results * SCAN - LABS (05/11/2024) us Provider Scanning Final Result documented in this encounter Visit Diagnoses Not on filedocumented in this encounter Care Teams Automobile Bumper Straightener Relationship Specialty Start Date End Date Kevin Velasquez MD [address] [place] [address] PCP - General 08/08/21 documented as of this encounter
--- OUTSIDE RECORDS SUMMARY | 2025-03-17 08:07 | XMS_ITS | Encounter Summary ---
Author Organization [facility] Healthcare Address [address] [place] [address] Care Team Providers Care Fixture Builder Name Role Phone Kevin Velasquez MD Primary Care Prov ider Encounter Details Date Type Department Care Team (Late st Contact Info) Description 07/13/2024 Orders Only [facility] [place] [facility] Health Information Management [address] [place] [id number] Scanning, Provider Social History Tobacco Use Types Packs/Day Years Used Date Smoking Tobacco: Never Smokeless Tobacco: Never Alcohol Use Standard Drinks/Week Comments No 0 (1 standard drink = 0.6 oz pur e alcohol) Comments Unknown Sex and Gender Information Value Date Recorded Sex Assigned at Not on file Legal Sex Female 8:50 PM BLOCK SAWYER Gender Identity Not on file Sexual Orientation Not on file documented as of this encounter Plan of Treatment Not on file documented as of this encounter Procedures Procedure Name Priority Date/Time Associated Diagnosis Comments SCAN - LABS 07/13/2024 documented in this encounter Results * SCAN - LABS (07/13/2024) us Provider Scanning Final Result documented in this encounter Visit Diagnoses Not on filedocumented in this encounter Care Teams Fixture Builder Relationship Specialty Start Date End Date Kevin Velasquez MD [address] [place] [address] PCP - General 08/08/21 documented as of this encounter
--- OUTSIDE RECORDS SUMMARY | 2025-03-17 08:07 | XMS_ITS | Encounter Summary ---
Author Organization [facility] Address [address] [facility] [address] [place] [address] Care Team Providers Care Sales Support Advisor Name Role Phone Kevin Velasquez MD Primary Care Prov ider Kevin Velasquez MD Primary Care Prov ider Encounter Details Date Type Department Care Team (Late st Contact Info) Description 10/31/2016 Orders Only [facility] ProviderEl MD [address] [place] [phone] Social History Tobacco Use Types Packs/Day Years Used Date Smoking Tobacco: Never Alcohol Use Standard Drinks/Week Comments No 0 (1 standard drink = 0.6 oz pur e alcohol) Comments Unknown Sex and Gender Information Value Date Recorded Sex Assigned at Not on file Legal Sex Female 8:50 PM NURSING SERVICES MANAGER Gender Identity Not on file Sexual Orientation Not on file documented as of this encounter Plan of Treatment Not on file documented as of this encounter Procedures Procedure Name Priority Date/Time Associated Diagnosis Comments CARDIOLOGY REPORT 10/31/2016 documented in this encounter Results * CARDIOLOGY REPORT (10/31/2016) Anatomical Region Laterality Modality Other Narrative 10/31/2016 Ordered by an unspecified provider. us Historical Provider [facility] SHAHRZAD NEWBY Final Result documented in this encounter Visit Diagnoses Not on filedocumented in this encounter Care Teams Sales Support Advisor Relationship Specialty Start Date End Date Kevin Velasquez MD [address] [place] [address] PCP - General 10/21/16 08/07/21 Kevin Velasquez MD [address] [place] [address] PCP - General 08/08/21 documented as of this encounter
--- OUTSIDE RECORDS SUMMARY | 2025-03-17 08:07 | XMS_ITS | Encounter Summary ---
Author Organization [facility] Healthcare Address [address] [place] [address] Care Team Providers Care Surgical Training Specialist Name Role Phone Kevin Velasquez MD Primary Care Prov ider Encounter Details Date Type Department Care Team (Late st Contact Info) Description 03/28/2024 Orders Only [facility] Health Information Management [address] [place] [id number] Scanning, Provider Social History Tobacco Use Types Packs/Day Years Used Date Smoking Tobacco: Never Smokeless Tobacco: Never Alcohol Use Standard Drinks/Week Comments No 0 (1 standard drink = 0.6 oz pur e alcohol) Comments Unknown Sex and Gender Information Value Date Recorded Sex Assigned at Not on file Legal Sex Female 8:50 PM LIQUID WASTE 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 PLANT OPERATOR Gender Identity Not on file Sexual Orientation Not on file documented as of this encounter Plan of Treatment Not on file documented as of this encounter Procedures Procedure Name Priority Date/Time Associated Diagnosis Comments SCAN - LABS 03/28/2024 documented in this encounter Results * SCAN - LABS (03/28/2024) us Provider Scanning Final Result documented in this encounter Visit Diagnoses Not on filedocumented in this encounter Care Teams Surgical Training Specialist Relationship Specialty Start Date End Date Kevin Velasquez MD [address] [place] [address] PCP - General 08/08/21 documented as of this encounter
--- OUTSIDE RECORDS SUMMARY | 2025-03-17 08:07 | XMS_ITS | Encounter Summary ---
Author Organization [facility] Healthcare Address [address] [place] [address] Care Team Providers Care Ic Designer Custom Name Role Phone Kevin Velasquez MD Primary Care Prov ider Encounter Details Date Type Department Care Team (Late st Contact Info) Description 09/26/2024 Orders Only [facility] Health Information Management [address] [place] [address] Scanning, Provider Social History Tobacco Use Types Packs/Day Years Used Date Smoking Tobacco: Never Smokeless Tobacco: Never Alcohol Use Standard Drinks/Week Comments No 0 (1 standard drink = 0.6 oz pur e alcohol) Comments Unknown Sex and Gender Information Value Date Recorded Sex Assigned at Not on file Legal Sex Female 8:50 PM MANAGER ADMINISTRATIVE SERVICES Gender Identity Not on file Sexual Orientation Not on file documented as of this encounter Plan of Treatment Not on file documented as of this encounter Procedures Procedure Name Priority Date/Time Associated Diagnosis Comments SCAN - LABS 09/26/2024 documented in this encounter Results * SCAN - LABS (09/26/2024) us Provider Scanning Final Result documented in this encounter Visit Diagnoses Not on filedocumented in this encounter Care Teams Ic Designer Custom Relationship Specialty Start Date End Date Kevin Velasquez MD [address] [place] [address] PCP - General 08/08/21 documented as of this encounter
--- NOTE | 2025-03-17 13:56 | WPDPFTINT ---
PFT Procedure Performed PFT Procedure Performed Spirometry with Pre/Post Bronchodilator Plethysmography (Lung Vol) Diffusing Cap (DLCO) Flow Vol Loop PFT Interpretation This is a pulmonary function test with pre and post-bronchodilator spirometry, plethysmography and diffusing capacity. The test was performed and results interpreted in accordance with the 2019 and 2005 ATS/ERS Task Force guidelines respectively using the Global Lung Function Initiative-2012 reference equations. Patient demonstrated good effort and cooperation. Reproducibility criteria were met. The quality of the pre bronchodilator spirometry maneuver was Grade A and post bronchodilator spirometry maneuver was Grade A. Findings: Spirometry:There is decreased maximal expiratory airflow at low lung volumes with concave expiratory flow tracing. The contour the inspiratory flow tracing is normal. The pre bronchodilator FVC is 1.41 L, 51% predicted. The pre bronchodilator FEV1 is 0.99 L, 46% predicted. The pre bronchodilator FEV1: FVC ratio 70%. The post bronchodilator FVC is 1.25 L, representing an 11% decrease. The post bronchodilator FEV1 is 0.83 L, representing a 16% decrease. The post bronchodilator FEV1: FVC ratio 66%. Plethysmography: The total lung capacity is 6.82 L, 139% predicted. The functional residual capacity is 5.98 L, 214% predicted. The residual volume is 5.41 L, 253% predicted. The residual volume: Total lung capacity ratio is 79%. Diffusing capacity: The diffusing capacity unadjusted for hemoglobin and carboxyhemoglobin is 6.1, 31% predicted. The diffusing capacity adjusted for alveolar volume is 5.13, 118% predicted. In comparison to PFTs on 11/24/2022, the post bronchodilator FVC is unchanged from 1.36 L to 1.25 L. The post bronchodilator FEV1 is decreased from 1.08 L to 0.83 L. The total lung capacity has increased from 4.86 L to 6.82 L. The functional residual capacity has increased from 2.38 L to 5.98 L. The residual volume has increased from 2.35 L to 5.41 L. The residual volume: Total lung capacity ratio has increased from 48% to 79%. The diffusing capacity unadjusted for hemoglobin and carboxyhemoglobin is decreased from 10.0 to 6.1. The diffusing capacity adjusted for alveolar volume is unchanged from 4.87 to 5.13. Impression: The FEV1 is less than 80% predicted and the FEV1: FVC ratio is 70% consistent with Preserved Ratio Impaired Spirometry (PRISm) with a low FVC. There is no significant improvement after inhaling a single dose of albuterol. The increase in residual volume to total lung volume ratio is consistent with hyperinflation from an obstructive abnormality. The diffusing capacity unadjusted for hemoglobin and carboxyhemoglobin is severely decreased and normalizes when adjusted for alveolar volume. In comparison to previous pulmonary function testing on 11/24/2022 there has been a greater than anticipated time dependent decrease in the FEV1 and diffusing capacity unadjusted for hemoglobin and carboxyhemoglobin. There has been a greater than anticipated time dependent increase in the total lung capacity, functional residual capacity and residual volume with no significant change in the FVC or diffusing capacity adjusted for alveolar volume. Clinical correlation is recommended.
--- NOTE | 2025-03-17 14:06 | WPDSIXMINUTE ---
Six Minute Walk Procedure Procedure Performed Pulmonary Stress Test (6 min walk) Six Minute Walk Six Minute Walk: This is a 6 minute walk test. The test was performed and interpreted in accordance with the 2014 ERS/ATS task force guidelines. Findings: The patient's resting room air oxygen saturation measured by pulse oximetry was 96%, the heart rate was 62 bpm, and the modified Katlin dyspnea score was 2. Patient ambulated for 152 meters and oxygen saturation remained 95%. At the end of the study the heart rate was 78 bpm and the modified Katlin dyspnea score was 4. The patient did not qualify for supplemental oxygen at rest or with ambulation. There are no prior studies for comparison.
== END 2025-03-17 07:58 | disposition home or self-care (01) ==
PROVIDERS: PCP Family Medicine Adolescent Medicine; Visit Provider Internal Medicine Critical Care Medicine
DX: R06.09 Other forms of dyspnea (principal)
CPT/HCPCS: 94060; 94618; 94726; 94729

== ENCOUNTER 2025-04-21 13:41 | Outpatient (CLI) | payer OTHER, SELFPAY ==
--- NOTE | ~2025-04-21 | XR_ITS ---
EXAMINATION: XR foot LT min 3V, 04/21/2025 13:45 CDT HISTORY: M79.672 - Pain in left foot COMPARISON: No comparisons available. Findings: Questionable fracture distal aspect proximal phalanx fifth digit No significant degenerative changes. Soft tissues unremarkable. Impression: Questionable fracture. Clinical correlation required Reviewed, dictated and finalized at location P. Impression: Questionable fracture. Clinical correlation required
== END 2025-04-21 13:42 | disposition home or self-care (01) ==
PROVIDERS: PCP Family Medicine Adolescent Medicine; Visit Provider Nurse Practitioner
DX: M79.672 Pain in left foot (principal)
CPT/HCPCS: 73630

== ENCOUNTER 2025-05-15 13:17 | Outpatient (CLI) | payer OTHER, SELFPAY ==
--- NOTE | ~2025-05-15 | US_ITS ---
EXAMINATION: US soft tissue LE RT, 05/15/2025 13:18 CDT HISTORY: R22.41 - Localized swelling, mass and lump, right lower limb Comparison: None Technique: Trotter-scale and color Doppler images were obtained. Findings: Correlating with the palpable area there is a complex fluid collection without abnormal flow or decreased communication measuring 2.8 x 1 x 2.3 cm. IMPRESSION: Small abscess versus hematoma. Other etiologies not excluded. Follow-up recommended to assess resolution Reviewed, dictated and finalized at location P. IMPRESSION: Small abscess versus hematoma. Other etiologies not excluded. Follo w-up recommended to assess resolution
== END 2025-05-15 13:18 | disposition home or self-care (01) ==
LOC: MICIMG 13:18
PROVIDERS: PCP Family Medicine Adolescent Medicine; Visit Provider Nurse Practitioner Family
DX: R22.41 Localized swelling, mass and lump, right lower limb (principal)
CPT/HCPCS: 76882